=== PATIENT | female | born 1985 | race Caucasian/White ===

== ENCOUNTER 2017-05-07 21:52 | Observation (INO) | payer SELFPAY ==
[~2017-05-07 21:52] MED LIST: IOHEXOL 350 MG/ML 10 ML VIAL (for RAD DIAG) IVCONTRAST ONE; PREN0.01 PO; Z.0.NO CURRENT MEDS
[2017-05-07 21:54] VITALS: BP 132/79; PULSE 93; RESP 16; TEMP 98.1; O2SAT 97
[2017-05-07 22:34] LABS: AUTOMATED NEUTROPHIL # 2.5 TH/MM3 (1.8-7.7); BASOPHIL # 0.1 TH/MM3 (0-0.2); BASOPHIL % 1.2 % (0.0-2.0); EOSINOPHIL # 0.2 TH/MM3 (0-0.4); EOSINOPHIL % 3.7 % (0.0-4.0); HEMATOCRIT 36.6 % (35.0-46.0); LYMPH % 32.6 % (9.0-44.0); LYMPHOCYTE # 1.5 TH/MM3 (1.0-4.8); MEAN CELL VOLUME 96.2 FL (80.0-100.0); MEAN CORPUSCULAR HEMOGLOBIN 32.2 PG (27.0-34.0); MEAN CORPUSCULAR HGB CONC 33.5 % (32.0-36.0); MONO % 8.7 % (0.0-8.0); NEUT % 53.8 % (16.0-70.0); PLATELET COUNT 53 TH/MM3 (150-450); RED CELL DISTRIBUTION WIDTH 16.5 % (11.6-17.2); WHITE BLOOD COUNT 4.6 TH/MM3 (4.0-11.0)
[2017-05-07 22:38] LABS: HEMO FLAGS AUTO DIFF
[2017-05-07] MEDS ORDERED: SODIUM CHLOR 0.9% 1000 ML INJ 1,000 ML IV SCH (22:39)
[2017-05-07] MEDS ORDERED: SODIUM CHLORIDE 0.9% FLUSH 10 ML FLUSH IV FLUSH PRN (22:45)
[2017-05-07 22:51] LABS: APTT (PATIENT) 32.7 SEC (24.3-30.1); INTERNATIONAL NORMALIZED RATIO 1.8 RATIO; PROTHROMBIN TIME - PATIENT 18.7 SEC (9.8-11.6)
--- NOTE | 2017-05-07 22:51 | PD ---
HPI Chief Complaint: Abdominal Pain Time Seen by Provider: 22:29 Travel History International Travel<30 days: No Contact w/Intl Traveler<30days: No Traveled to known affect area: No History of Present Illness HPI Patient is a 32-year-old female presenting to the emergency department for evaluation of right upper quadrant abdominal pain and right mid back pain. Patient states the pain is intermittent and chronic in nature. It has gotten worse over the last 2 days. She reports vomiting yesterday. She denies any fever, chills, chest pain, shortness breath. Patient reports a history of cirrhosis from a blood transfusion when she was a baby. She is positive for hepatitis C. Patient reports alcohol use, she denies any illicit drug use or tobacco use. [facility] Past Medical History Anxiety: Yes Depression: Yes Cirrhosis: Yes Diminished Hearing: No Hepatitis: Yes (C) Musculoskeletal: Yes (C-SPINE PROBLEMS) ?: Not LMP: 5 MONTHS AGO : 2 Social History Alcohol Use: Yes Tobacco Use: No Substance Use: No Allergies-Medications (Allergen,Severity, Reaction): Coded Allergies: No Known Allergies (Verified , 11/09/09) Reported Meds & Prescriptions Reported Meds & Active Scripts Active Review of Systems Except as stated in HPI: all other systems reviewed are Neg General / Constitutional: No: Fever, Chills HENT: No: Headaches Cardiovascular: No: Chest Pain or Discomfort Respiratory: No: Cough Gastrointestinal: Positive: Nausea, Vomiting (yesterday, none today), Abdominal Pain Genitourinary: No: Dysuria Musculoskeletal: No: Myalgias Neurologic: No: Weakness, Dizziness, Syncope Psychiatric: Positive: Substance Abuse Physical Exam Narrative GENERAL: Overweight, well-developed, intoxicated-appearing female. Slightly disheveled. SKIN: Warm and dry. HEAD: Atraumatic. Normocephalic. EYES: Pupils equal and round. Mild scleral icterus. No injection or drainage. ENT: No nasal bleeding or discharge. Mucous membranes pink and moist. NECK: Trachea midline. No JVD. CARDIOVASCULAR: Regular rate and rhythm. RESPIRATORY: No accessory muscle use. Clear to auscultation. Breath sounds equal bilaterally. GASTROINTESTINAL: Abdomen soft, non-tender, nondistended. Hepatic and splenic margins not palpable. Positive bowel sounds, no rebound, no guarding. MUSCULOSKELETAL: Extremities without clubbing, cyanosis, or edema. No obvious deformities. Tender point to palpation in right mid back. No CVAT bilaterally. NEUROLOGICAL: Awake and alert. No obvious cranial nerve deficits. Motor grossly within normal limits. Five out of 5 muscle strength in the arms and legs. Normal speech. PSYCHIATRIC: Appropriate mood and affect; insight and judgment normal. Data Data Last Documented VS Orders Orders Complete Blood Count With Diff (05/07/17 21:59) Comprehensive Metabolic Panel (05/07/17 21:59) Lipase (05/07/17 21:59) Prothrombin Time / Inr (Pt) (05/07/17 21:59) Act Partial Throm Time (Ptt) (05/07/17 21:59) Urinalysis - C+S If Indicated (05/07/17 21:59) Ammonia (05/07/17 21:59) Direct Bilirubin (05/07/17 21:59) Us Abdomen Gallbladder (05/07/17 ) Iv Access Insert/Monitor (05/07/17 22:39) Ecg Monitoring (05/07/17 22:39) Oximetry (05/07/17 22:39) NPO (05/07/17 22:39) Sodium Chlor 0.9% 1000 Ml Inj (Ns 1000 M (05/07/17 22:39) Sodium Chloride 0.9% Flush (Ns Flush) (05/07/17 22:45) Ed Urine Pregnancytest Poc (05/07/17 22:39) Alcohol (Ethanol) (05/07/17 22:39) Lactulose Liq (Lactulose Liq) (05/08/17 00:00) Admit Order (Ed Use Only) (05/07/17 23:50) Labs Laboratory Tests Test 05/07/17 22:02 05/07/17 22:05 05/07/17 23:00 Ammonia 83 MCMOL/L White Blood Count 4.6 TH/MM3 Red Blood Count 3.80 MIL/MM3 Hemoglobin 12.2 GM/DL Hematocrit 36.6 % Mean Corpuscular Volume 96.2 FL Mean Corpuscular Hemoglobin 32.2 PG Mean Corpuscular Hemoglobin Concent 33.5 % Red Cell Distribution Width 16.5 % Platelet Count 53 TH/MM3 Mean Platelet Volume 8.8 FL Neutrophils (%) (Auto) 53.8 % Lymphocytes (%) (Auto) 32.6 % Monocytes (%) (Auto) 8.7 % Eosinophils (%) (Auto) 3.7 % Basophils (%) (Auto) 1.2 % Neutrophils # (Auto) 2.5 TH/MM3 Lymphocytes # (Auto) 1.5 TH/MM3 Monocytes # (Auto) 0.4 TH/MM3 Eosinophils # (Auto) 0.2 TH/MM3 Basophils # (Auto) 0.1 TH/MM3 CBC Comment AUTO DIFF Differential Comment AUTO DIFF CONFIRMED Platelet Estimate LOW Platelet Morphology Comment NORMAL Prothrombin Time 18.7 SEC Prothromb Time International Ratio 1.8 RATIO Activated Partial Thromboplast Time 32.7 SEC Blood Urea Nitrogen 4 MG/DL Creatinine 0.63 MG/DL Random Glucose 98 MG/DL Total Protein 8.8 GM/DL Albumin 2.5 GM/DL Calcium Level 8.3 MG/DL Alkaline Phosphatase 137 U/L Aspartate Amino Transf (AST/SGOT) 214 U/L Alanine Aminotransferase (ALT/SGPT) 76 U/L Total Bilirubin 4.9 MG/DL Direct Bilirubin 3.0 MG/DL Sodium Level 144 MEQ/L Potassium Level 3.4 MEQ/L Chloride Level 109 MEQ/L Carbon Dioxide Level 25.8 MEQ/L Anion Gap 9 MEQ/L Estimat Glomerular Filtration Rate 109 ML/MIN Phosphorus Level 4.5 MG/DL Magnesium Level 1.9 MG/DL Lipase 524 U/L Thyroid Stimulating Hormone 3rd Gen 2.930 uIU/ML Ethyl Alcohol Level 306 MG/DL Urine Color YELLOW Urine Turbidity CLEAR Urine pH 6.0 Urine Specific [place] 1.003 Urine Protein NEG mg/dL Urine Glucose (UA) NEG mg/dL Urine Ketones NEG mg/dL Urine Occult Blood NEG Urine Nitrite NEG Urine Bilirubin NEG Urine Urobilinogen 2.0 MG/DL Urine Leukocyte Esterase NEG Urine RBC LESS THAN 1 /hpf Urine WBC LESS THAN 1 /hpf Urine Squamous Epithelial Cells 1 /hpf Microscopic Urinalysis Comment CULT NOT INDICATED MDM Medical Decision Making Medical Screen Exam Complete: Yes Emergency Medical Condition: Yes Medical Record Reviewed: Yes Interpretation(s) Vital Signs Date Time Temp Pulse Resp B/P (MAP) Pulse Ox O2 Delivery O2 Flow Rate FiO2 05/07/17 21:54 98.1 93 16 132/79 (96 97 Differential Diagnosis Jaundice versus metabolic abnormality versus muscle strain versus liver failure versus other Narrative Course Patient presented for evaluation of right upper quadrant and right mid back pain. Complaint seems chronic in nature however she states it's gotten worse over the last 2 days. Her vital signs are stable, patient appears intoxicated and smells of alcohol. She does admit to drinking wine this evening. Patient' s vital signs are stable, labs were obtained while in triage. Additionally we' ll check an alcohol level an ultrasound of the right upper quadrant is ordered and pending. IV fluids ordered. Care of patient transferred to my attending physician, he will determine patients disposition. Scripts Phytonadione (Vit K1) (Phytonadione) 100 % Liquid 5 MG PO DAILY for Vitamin K deficiency for 2 Days, #10 MG Prov: Zakiya Carvajal 05/12/17 Multivitamin with Folic Acid (Thera Tablet) 400 Mcg Tablet 1 TAB PO DAILY for Nutritional Supplement for 30 Days, #30 TAB Prov: Zakiya Carvajal 05/12/17 Cholecalciferol ([facility] Vitamin D3 Extra Stre) 1,000 Unit Tab 2000 UNITS PO DAILY for Nutritional Supplement for 30 Days, TAB Prov: Zakiya Carvajal 05/12/17 Thiamine HCl ([facility] Vitamin B-1) 100 Mg Tab 100 MG PO DAILY for Nutritional Supplement for 30 Days, #30 TAB Prov: Zakiya Carvajal 05/12/17 Folic Acid (Folic Acid) 1 Mg Tablet 1 MG PO DAILY for Nutritional Supplement for 30 Days, #30 TAB Prov: Zakiya Carvajal 05/12/17 Prednisone (Prednisone) 20 Mg Tab 20 MG PO DAILY for LIVER DISEASE for 10 Days, #10 TAB Take 20mg x 5 days, then take 10mg x 5 days, then discontinue. Prov: Zakiya Carvajal 05/12/17 Pantoprazole (Pantoprazole) 40 Mg Tab 40 MG PO DAILY for GASTRITIS for 30 Days, #30 TAB Prov: Zakiya Carvajal 05/12/17 [Calcium Carbonate Chew] 500 MG CHEW No Conflict Check 500 MG CHEW BID for HYPOCALCEMIA for 10 Days Prov: Zakiya Carvajal 05/12/17 [Lactulose Liq] 30 ML SYRP No Conflict Check 30 ML PO TID for LIVER DISEASE/HYPERAMMONEMIA, #1 BOTTLE Prov: Zakiya Carvajal 05/12/17 Propranolol (Propranolol) 10 Mg Tab 5 MG PO Q12HR for PORTAL HYPERTENSION, #60 TAB Prov: Zakiya Carvajal 05/12/17 Pentoxifylline ER (Pentoxifylline ER) 400 Mg Tab 400 MG PO Q8HR for LIVER DISEASE for 30 Days, TAB Prov: Zakiya Carvajal 05/12/17 Kami Figueroa May 07, 2017 22:51
[2017-05-07 22:56] LABS: ALT (GPT) 76 U/L (10-53); ANION GAP 9 MEQ/L (5-15); AST (GOT) 214 U/L (15-37); BICARBONATE 25.8 MEQ/L (21.0-32.0); BLOOD UREA NITROGEN 4 MG/DL (7-18); CHLORIDE 109 MEQ/L (98-107); GLOMERULAR FILTRATION RATE 109 ML/MIN (>89); POTASSIUM 3.4 MEQ/L (3.5-5.1); SODIUM (NA) 144 MEQ/L (136-145)
[2017-05-07 22:58] LABS: ALKALINE PHOSPHATASE 137 U/L (45-117); TOTAL BILIRUBIN ADULT 4.9 MG/DL (0.2-1.0)
[2017-05-07 23:16] VITALS: BP 109/58; PULSE 85; RESP 17; O2SAT 98
[2017-05-07 23:25] LABS: BLOOD, URINE NEG (NEG); GLUCOSE,URINE NEG (NEG); KETONE, URINE NEG (NEG); NITRITE,URINE NEG (NEG); SQUAMOUS EPITHELIAL CELL URINE 1 /hpf (0-5); URINE COLOR YELLOW (YELLW/STRAW)
[2017-05-07 23:29] LABS: COMMENT (UR) CULT NOT INDICATED; CULTURE IF INDICATED CULT NOT INDICATED
--- NOTE | 2017-05-07 23:36 | RADRPT ---
EXAM DATE/TIME: 05/07/2017 23:10 [place] COMPARISON: No previous studies available for comparison. INDICATIONS : Right upper quadrant pain. MEDICAL HISTORY : Hepatitis C. Cirrhosis. SURGICAL HISTORY : None. ENCOUNTER: Initial ACUITY: 1 day PAIN SCORE: 3/10 LOCATION: Right upper quadrant MEASUREMENTS: LIVER: 18.2 cm length COMMON DUCT: 5 mm RIGHT KIDNEY: 13.7 x 5.2 x 6.5 cm FINDINGS: LIVER: The liver is prominent and diffusely increased in echogenicity with mild heterogeneity. There is no f ocal mass or ductal dilatation. There is no ascites. COMMON DUCT: No intraluminal mass or stone visualized. GALLBLADDER: A single echogenic stone is noted in the gallbladder with posterior shadowing. There is no wall thick ening or pericholecystic fluid. PANCREAS: The visualized portions are within normal limits. RIGHT KIDNEY: No evidence of hydronephrosis, stone, or mass. CONCLUSION: 1. Cholelithiasis with single echogenic gallstone with posterior shadowing. There is no evidence of b iliary obstruction. 2. The liver is enlarged with findings characteristic of hepatic steatosis. Azar Rodriguez MD on May 07, 2017 at 23:32 Board Certified Radiologist. This report was verified electronically.
[2017-05-07 23:42] LABS: PLATELET ESTIMATE SMEAR LOW (NORMAL); PLATELET MORPHOLOGY NORMAL (NORMAL); SCAN/DIFF AUTO DIFF CONFIRMED
--- NOTE | 2017-05-07 23:47 | PD ---
Data Data Last Documented VS Vital Signs Date Time Temp Pulse Resp B/P (MAP) Pulse Ox O2 Delivery O2 Flow Rate FiO2 05/07/17 23:16 85 17 109/58 (75) 98 Room Air 05/07/17 21:54 98.1 Orders Orders Complete Blood Count With Diff (05/07/17 21:59) Comprehensive Metabolic Panel (05/07/17 21:59) Lipase (05/07/17 21:59) Prothrombin Time / Inr (Pt) (05/07/17 21:59) Act Partial Throm Time (Ptt) (05/07/17 21:59) Urinalysis - C+S If Indicated (05/07/17 21:59) Ammonia (05/07/17 21:59) Direct Bilirubin (05/07/17 21:59) Us Abdomen Gallbladder (05/07/17 ) Iv Access Insert/Monitor (05/07/17 22:39) Ecg Monitoring (05/07/17 22:39) Oximetry (05/07/17 22:39) NPO (05/07/17 22:39) Sodium Chlor 0.9% 1000 Ml Inj (Ns 1000 M (05/07/17 22:39) Sodium Chloride 0.9% Flush (Ns Flush) (05/07/17 22:45) Ed Urine Pregnancytest Poc (05/07/17 22:39) Alcohol (Ethanol) (05/07/17 22:39) Labs Laboratory Tests Test 05/07/17 22:02 05/07/17 22:05 05/07/17 23:00 Ammonia 83 MCMOL/L White Blood Count 4.6 TH/MM3 Red Blood Count 3.80 MIL/MM3 Hemoglobin 12.2 GM/DL Hematocrit 36.6 % Mean Corpuscular Volume 96.2 FL Mean Corpuscular Hemoglobin 32.2 PG Mean Corpuscular Hemoglobin Concent 33.5 % Red Cell Distribution Width 16.5 % Platelet Count 53 TH/MM3 Mean Platelet Volume 8.8 FL Neutrophils (%) (Auto) 53.8 % Lymphocytes (%) (Auto) 32.6 % Monocytes (%) (Auto) 8.7 % Eosinophils (%) (Auto) 3.7 % Basophils (%) (Auto) 1.2 % Neutrophils # (Auto) 2.5 TH/MM3 Lymphocytes # (Auto) 1.5 TH/MM3 Monocytes # (Auto) 0.4 TH/MM3 Eosinophils # (Auto) 0.2 TH/MM3 Basophils # (Auto) 0.1 TH/MM3 CBC Comment AUTO DIFF Differential Comment AUTO DIFF CONFIRMED Platelet Estimate LOW Platelet Morphology Comment NORMAL Prothrombin Time 18.7 SEC Prothromb Time International Ratio 1.8 RATIO Activated Partial Thromboplast Time 32.7 SEC Blood Urea Nitrogen 4 MG/DL Creatinine 0.63 MG/DL Random Glucose 98 MG/DL Total Protein 8.8 GM/DL Albumin 2.5 GM/DL Calcium Level 8.3 MG/DL Alkaline Phosphatase 137 U/L Aspartate Amino Transf (AST/SGOT) 214 U/L Alanine Aminotransferase (ALT/SGPT) 76 U/L Total Bilirubin 4.9 MG/DL Direct Bilirubin 3.0 MG/DL Sodium Level 144 MEQ/L Potassium Level 3.4 MEQ/L Chloride Level 109 MEQ/L Carbon Dioxide Level 25.8 MEQ/L Anion Gap 9 MEQ/L Estimat Glomerular Filtration Rate 109 ML/MIN Lipase 524 U/L Ethyl Alcohol Level 306 MG/DL Urine Color YELLOW Urine Turbidity CLEAR Urine pH 6.0 Urine Specific [place] 1.003 Urine Protein NEG mg/dL Urine Glucose (UA) NEG mg/dL Urine Ketones NEG mg/dL Urine Occult Blood NEG Urine Nitrite NEG Urine Bilirubin NEG Urine Urobilinogen 2.0 MG/DL Urine Leukocyte Esterase NEG Urine RBC LESS THAN 1 /hpf Urine WBC LESS THAN 1 /hpf Urine Squamous Epithelial Cells 1 /hpf Microscopic Urinalysis Comment CULT NOT INDICATED MDM Supervised Visit with MERVIN: Yes Narrative Course I, Dr. Diana, have reviewed the advance practice practitioner's documentation and am in agreement, met with the patient face to face, made the diagnosis, and the medical decision making was done by me. See her note for further details. Briefly this a 32-year-old female who is here for evaluation of right upper quadrant abdominal pain. Patient drinks a moderate amount of alcohol daily. She just moved here from [place] 2 days ago with her significant other. Vital signs are within normal limits. CBC is remarkable for platelets 53. CMP is remarkable for TB bili 4.9, AST 214, ALT 76, alkaline phosphatase 137 Ammonia level is 83. Alcohol level is 306. Right upper quadrant ultrasound: Cholelithiasis with single echogenic gallstone with posterior shadowing. There is no evidence of biliary obstruction. The liver is enlarged with findings characteristic of hepatic steatosis. Patient reports history of hepatitis C. She seems somewhat confused, likely secondary to hepatic encephalopathy given her ammonia level of 83. She will be given lactulose and will be admitted for overnight observation. Case discussed with hospitalist Dr. Hoffman who will admit the patient to her service. Diagnosis Primary Impression: Hepatic encephalopathy Additional Impressions: Transaminitis Hyperbilirubinemia Alcohol intoxication Qualified Codes: F10.921 - Alcohol use, unspecified with intoxication delirium Admitting Information Admitting Physician Requests: Observation Yo Diana MD May 07, 2017 23:47
[2017-05-08] VITALS (7 sets, daily range): BP systolic 109–123; BP diastolic 55–80; PULSE 89–99; RESP 16–20; TEMP 97.9–99; O2SAT 93–98
[2017-05-08] MEDS ORDERED: LACTULOSE SYRUP 20 GM/30 ML CUP PO ONE
[2017-05-08] MEDS ORDERED: NALOXONE HCL 0.4 MG/ML AMP IV PUSH PRN (00:15)
[2017-05-08] MEDS ORDERED: LORazepam 2 MG TAB PO PRN (00:15)
[2017-05-08] MEDS ORDERED: LORazepam 1 MG TAB PO PRN (00:15)
[2017-05-08] MEDS ORDERED: LORazepam 2 MG/ML VIAL IV PUSH PRN ×4 (00:15)
[2017-05-08] MEDS ORDERED: THIAMINE HCL 100 MG TAB PO ONE (00:15)
[2017-05-08] MEDS ORDERED: SODIUM CHLORIDE 0.9% FLUSH 10 ML FLUSH IV FLUSH PRN ×2 (00:15)
[2017-05-08] MEDS ORDERED: FLUMAZENIL 0.5 MG/5 ML VIAL IV PUSH PRN (00:15)
[2017-05-08] MEDS ORDERED: POTASSIUM CHLORIDE 25 MEQ EFFERVESCENT TAB PO ONE (03:30)
--- NOTE | 2017-05-08 06:44 | HHI.HP ---
[facility] No Primary Care Physician Admission Diagnosis hepatic encephalopathy, transaminitis, hyperbilirubinemia, alcohol ABUSE Diagnoses: Chief Complaint: Liver issues Travel History International Travel<30 Days: No Contact w/Intl Traveler <30 Da: No Traveled to Known Affected Are: No History of Present Illness hx from patient, ER communication and review of med records no fever no [place] no vomtiing was told liver flare up about 1 week ago has been drowsy has hepatitis c wont wake up for my interview - but mostly sleepy has not made bowel movement is confused on my arrival, took long time to wake up and was not answering questions Wide awake for my interview answered all questions appropriately has not taken lactulose yet Review of Systems Constitutional: DENIES: Diaphoretic episodes, Fatigue, Fever, Weight gain, Weight loss, Chills, Dizziness, Change in appetite, Night Sweats Endocrine: DENIES: Abnorml menstrual pattern, Heat/cold intolerance Eyes: DENIES: Blurred vision, Diplopia, Eye inflammation, Eye pain, Vision loss Ears, nose, mouth, throat: DENIES: Tinnitus, Hearing loss, Vertigo, Nasal discharge, Running Nose, Epistaxis Respiratory: COMPLAINS OF: Cough, DENIES: Apneas, Snoring, Wheezing, Hemoptysis Cardiovascular: DENIES: Chest pain, Palpitations, Syncope, Dyspnea on Exertion Gastrointestinal: DENIES: Abdominal pain, Black stools, Bloody stools, Constipation Genitourinary: DENIES: Abnormal vaginal bleeding, Dysmenorrhea Musculoskeletal: DENIES: Joint pain, Muscle aches, Stiffness Integumentary: DENIES: Abnormal pigmentation, Pruritus Hematologic/lymphatic: DENIES: Bruising, Lymphadenopathy Immunologic/allergic: DENIES: Eczema, Urticaria Neurologic: DENIES: Abnormal gait, Headache, Localized weakness Psychiatric: DENIES: Anxiety, Confusion, Mood changes, Delusions Except as stated in HPI: all other systems reviewed are Neg Past Family Social History Past Medical History hepatitis c Past Surgical History none Reported Medications Reported Meds & Active Scripts Active Allergies: Coded Allergies: No Known Allergies (Verified , 11/09/09) Active Ordered Medications Current Medications Sodium Chloride 1,000 ml @ 1,000 mls/hr Q1H IV Last administered on 05/07/17 23:22; Start 05/07/17 at 22:39; Stop 05/07/17 at 23:38; Status DC Sodium Chloride (NS Flush) 2 ml UNSCH PRN IV FLUSH FLUSH AFTER USING IV ACCESS ; Start 05/07/17 at 22:45; Stop 05/08/17 at 00:08; Status DC Lactulose (Lactulose Liq) 30 ml ONCE ONCE PO Last administered on 05/08/17 00 :08; Start 05/08/17 at 00:00; Stop 05/08/17 at 00:01; Status DC Sodium Chloride (NS Flush) 2 ml UNSCH PRN IV FLUSH FLUSH AFTER USING IV ACCESS ; Start 05/08/17 at 00:15; Stop 05/08/17 at 00:15; Status DC Sodium Chloride (NS Flush) 2 ml BID IV FLUSH ; Start 05/08/17 at 09:00; Stop at 09:00; Status DC Naloxone HCl (Narcan Inj) 0.4 mg UNSCH PRN IV PUSH SEE LABEL COMMENTS; Start 05/08/17 at 00:15 Lactulose (Lactulose Liq) 30 ml QID PO Last administered on 05/08/17 12:13; Start 05/08/17 at 09:00 Thiamine HCl (Vitamin B1) 100 mg DAILY PO Last administered on 05/08/17 09:03 ; Start 05/08/17 at 09:00 Thiamine HCl (Vitamin B1) 100 mg ONCE ONCE PO Last administered on 05/08/17 00:53; Start 05/08/17 at 00:15; Stop 05/08/17 at 00:16; Status DC Sodium Chloride (NS Flush) 2 ml UNSCH PRN IV FLUSH FLUSH AFTER USING IV ACCESS ; Start 05/08/17 at 00:15 Sodium Chloride (NS Flush) 2 ml BID IV FLUSH Last administered on 05/08/17 09: 03; Start 05/08/17 at 09:00 Folic Acid (Folate) 1 mg DAILY PO Last administered on 05/08/17 09:03; Start 05/08/17 at 09:00; Stop 05/13/17 at 08:59 Flumazenil (Romazicon Inj) 0.2 mg Q1M PRN IV PUSH SEE LABEL COMMENTS; Start at 00:15 Lorazepam (Ativan) 1 mg Q4H PRN PO CIWA 8 - 10 Last administered on 05/08/17 04:02; Start 05/08/17 at 00:15 Lorazepam (Ativan Inj) 1 mg Q4H PRN IV PUSH CIWA 8 - 10; Start 05/08/17 at 00: 15 Lorazepam (Ativan) 2 mg Q2H PRN PO CIWA 11-14; Start 05/08/17 at 00:15 Lorazepam (Ativan Inj) 2 mg Q2H PRN IV PUSH CIWA 11-14; Start 05/08/17 at 00:15 Lorazepam (Ativan Inj) 2 mg Q1H PRN IV PUSH CIWA 15-20; Start 05/08/17 at 00:15 Lorazepam (Ativan Inj) 2 mg Q15M PRN IV PUSH CIWA > 20; Start 05/08/17 at 00:15 Potassium Bicarb/ Potassium Chloride (K-Lyte Cl Eff) 50 meq ONCE ONCE PO Last administered on 05/08/17 04:00; Start 05/08/17 at 03:30; Stop 05/08/17 at 03:31; Status DC Family History Denies Social History no smoking drinks 2 beers a day or so no drugs Physical Exam Vital Signs Vital Signs Date Time Temp Pulse Resp B/P (MAP) Pulse Ox O2 Delivery O2 Flow Rate FiO2 05/08/17 02:29 97.9 89 17 109/65 (80) 93 05/07/17 23:16 85 17 109/58 (75) 98 Room Air 05/07/17 21:54 98.1 93 16 132/79 (96) 97 Physical Exam GENERAL: This is a well-nourished, well-developed patient, in no apparent distress. SKIN: No rashes, ecchymoses or lesions. Cool and dry. HEAD: Atraumatic. Normocephalic. No temporal or scalp tenderness. EYES: Pupils equal round and reactive. Extraocular motions intact. No scleral icterus. No injection or drainage. ENT: Nose without bleeding, purulent drainage or septal hematoma. Throat without erythema, tonsillar hypertrophy or exudate. Uvula midline. Airway patent. NECK: Trachea midline. No JVD or lymphadenopathy. Supple, nontender, no meningeal signs. CARDIOVASCULAR: Regular rate and rhythm without murmurs, gallops, or rubs. RESPIRATORY: Clear to auscultation. Breath sounds equal bilaterally. No wheezes , rales, or rhonchi. GASTROINTESTINAL: Abdomen soft, non-tender, nondistended. No hepato-splenomegaly , or palpable masses. No guarding. Obese MUSCULOSKELETAL: Extremities without clubbing, cyanosis, or edema. No joint tenderness, effusion, or edema noted. No calf tenderness. Negative Homans sign bilaterally. NEUROLOGICAL: Awake and alert. Cranial nerves II through XII intact. Motor and sensory grossly within normal limits. Five out of 5 muscle strength in all muscle groups. Normal speech. Insight and judgment appears good Mood and behavior is appropriate Laboratory Laboratory Tests Test 05/07/17 22:02 05/07/17 22:05 05/07/17 23:00 Ammonia 83 White Blood Count 4.6 Red Blood Count 3.80 Hemoglobin 12.2 Hematocrit 36.6 Mean Corpuscular Volume 96.2 Mean Corpuscular Hemoglobin 32.2 Mean Corpuscular Hemoglobin Concent 33.5 Red Cell Distribution Width 16.5 Platelet Count 53 Mean Platelet Volume 8.8 Neutrophils (%) (Auto) 53.8 Lymphocytes (%) (Auto) 32.6 Monocytes (%) (Auto) 8.7 Eosinophils (%) (Auto) 3.7 Basophils (%) (Auto) 1.2 Neutrophils # (Auto) 2.5 Lymphocytes # (Auto) 1.5 Monocytes # (Auto) 0.4 Eosinophils # (Auto) 0.2 Basophils # (Auto) 0.1 CBC Comment AUTO DIFF Differential Comment AUTO DIFF CONFIRMED Platelet Estimate LOW Platelet Morphology Comment NORMAL Prothrombin Time 18.7 Prothromb Time International Ratio 1.8 Activated Partial Thromboplast Time 32.7 Blood Urea Nitrogen 4 Creatinine 0.63 Random Glucose 98 Total Protein 8.8 Albumin 2.5 Calcium Level 8.3 Alkaline Phosphatase 137 Aspartate Amino Transf (AST/SGOT) 214 Alanine Aminotransferase (ALT/SGPT) 76 Total Bilirubin 4.9 Direct Bilirubin 3.0 Sodium Level 144 Potassium Level 3.4 Chloride Level 109 Carbon Dioxide Level 25.8 Anion Gap 9 Estimat Glomerular Filtration Rate 109 Lipase 524 Ethyl Alcohol Level 306 Urine Color YELLOW Urine Turbidity CLEAR Urine pH 6.0 Urine Specific [place] 1.003 Urine Protein NEG Urine Glucose (UA) NEG Urine Ketones NEG Urine Occult Blood NEG Urine Nitrite NEG Urine Bilirubin NEG Urine Urobilinogen 2.0 Urine Leukocyte Esterase NEG Urine RBC LESS THAN 1 Urine WBC LESS THAN 1 Urine Squamous Epithelial Cells 1 Microscopic Urinalysis Comment CULT NOT INDICATED Result Diagram: 05/07/17220405/07/172204 Imaging Last Impressions Gall Bladder Ultrasound 05/07/17 0000 Signed Impressions: Service Date/Time: Sunday, May 07, 2017 23:10 - CONCLUSION: 1. Cholelithiasis with single echogenic gallstone with posterior shadowing. There is no evidence of biliary obstruction. 2. The liver is enlarged with findings characteristic of hepatic steatosis. MD Jena Ibarra VTE Risk Assessment [place] VTE Risk Assessment: No/Low Risk (score <= 1) Caprini Risk Assessment Model Point Value = 1 Point Value = 2 Point Value = 3 Point Value = 5 Age 41-60 Minor surgery BMI > 25 kg/m2 Swollen legs Varicose veins or History of unexplained or recurrent spontaneous Oral contraceptives or hormone replacement Sepsis (< 1 month) Serious lung disease, including pneumonia (< 1 month) Abnormal pulmonary function Acute myocardial infarction Congestive heart failure (< 1 month) History of inflammatory bowel disease Medical patient at bed rest Age 61-74 Arthroscopic surgery Major open surgery (> 45 min) Laparoscopic surgery (> 45 min) Malignancy Confined to bed (> 72 hours) Immobilizing plaster cast Central venous access Age >= 75 History of VTE Family history of VTE Factor V Leiden Prothrombin [id number] Lupus anticoagulant Anticardiolipin antibodies Elevated serum homocysteine Heparin-induced thrombocytopenia Other congenital or acquired thrombophilia Stroke (< 1 month) Elective arthroplasty Hip, pelvis, or leg fracture Acute spinal cord injury (< 1 month) Prophylaxis Regimen Total Risk Factor Score Risk Level Prophylaxis Regimen 0-1 Low Early ambulation 2 Moderate Order ONE of the following: *Sequential Compression Device (SCD) *Heparin 5000 units SQ BID 3-4 Higher Order ONE of the following medications: *Heparin 5000 units SQ TID *Enoxaparin/Lovenox 40 mg SQ daily (WT < 150 kg, CrCl > 30 mL/min) *Enoxaparin/Lovenox 30 mg SQ daily (WT < 150 kg, CrCl > 10-29 mL/min) *Enoxaparin/Lovenox 30 mg SQ BID (WT < 150 kg, CrCl > 30 mL/min) AND/OR *Sequential Compression Device (SCD) 5 or more Highest Order ONE of the following medications: *Heparin 5000 units SQ TID (Preferred with Epidurals) *Enoxaparin/Lovenox 40 mg SQ daily (WT < 150 kg, CrCl > 30 mL/min) *Enoxaparin/Lovenox 30 mg SQ daily (WT < 150 kg, CrCl > 10-29 mL/min) *Enoxaparin/Lovenox 30 mg SQ BID (WT < 150 kg, CrCl > 30 mL/min) AND *Sequential Compression Device (SCD) Assessment and Plan Assessment and Plan hepatic encephalopathy hepatitis C symptomatic cholelithiasis Alcohol abuse Possible homeless Elevated INR/coagulopathy lactulose 30ml qid vitamin k outpatient GI follow up would need to wake up more and see response to lactulose. If more awake and alert, can consider outpatient GI workup Code Status FULL Code Discussed Condition With RN and patient and family and Shaq Sanchez MD May 08, 2017 06:44 Agustin Dunham DO May 08, 2017 12:31
[2017-05-08 08:58] LABS: MAGNESIUM 1.9 MG/DL (1.5-2.5)
[2017-05-08] MEDS ORDERED: SODIUM CHLORIDE 0.9% FLUSH 10 ML FLUSH IV FLUSH SCH (09:00)
[2017-05-08] MEDS: FOLIC ACID 1 MG TAB PO SCH (09:03)
[2017-05-08] MEDS: LACTULOSE SYRUP 20 GM/30 ML CUP PO SCH ×4 (09:03→20:53)
[2017-05-08] MEDS: SODIUM CHLORIDE 0.9% FLUSH 10 ML FLUSH IV FLUSH SCH ×2 (09:03→20:48)
[2017-05-08] MEDS: THIAMINE HCL 100 MG TAB PO SCH (09:03)
[2017-05-08] MEDS ORDERED: PHYTONADIONE 5 MG TAB PO SCH (13:00)
[2017-05-08] MEDS ORDERED: MULTIVITAMIN TAB PO ONE (13:00)
[2017-05-08] MEDS ORDERED: PANTOPRAZOLE SOD 40 MG DELAYED RELEASE TAB PO ONE (13:00)
[2017-05-08] MEDS: PHYTONADIONE 5 MG/SWFI 5 ML ORAL SYR PO SCH (15:00)
[2017-05-08] MEDS: IBUPROFEN 400 MG TAB PO PRN (20:48)
[2017-05-09] VITALS (12 sets, daily range): BP systolic 107–146; BP diastolic 56–80; PULSE 67–108; RESP 16–18; TEMP 98.2–99; O2SAT 95–97
[2017-05-09 05:22] LABS: AUTOMATED NEUTROPHIL # 1.2 TH/MM3 (1.8-7.7); BASOPHIL % 0.5 % (0.0-2.0); EOSINOPHIL # 0.1 TH/MM3 (0-0.4); EOSINOPHIL % 4.1 % (0.0-4.0); HEMATOCRIT 34.2 % (35.0-46.0); LYMPH % 34.2 % (9.0-44.0); LYMPHOCYTE # 0.8 TH/MM3 (1.0-4.8); MEAN CELL VOLUME 98.1 FL (80.0-100.0); MEAN CORPUSCULAR HEMOGLOBIN 32.8 PG (27.0-34.0); MEAN CORPUSCULAR HGB CONC 33.4 % (32.0-36.0); MONO % 11.6 % (0.0-8.0); NEUT % 49.6 % (16.0-70.0); PLATELET COUNT 38 TH/MM3 (150-450); RED BLOOD COUNT 3.49 MIL/MM3 (4.00-5.30); RED CELL DISTRIBUTION WIDTH 16.1 % (11.6-17.2); WHITE BLOOD COUNT 2.5 TH/MM3 (4.0-11.0)
[2017-05-09 05:32] LABS: HEMO FLAGS AUTO DIFF
[2017-05-09 05:40] LABS: INTERNATIONAL NORMALIZED RATIO 1.9 RATIO; PROTHROMBIN TIME - PATIENT 19.7 SEC (9.8-11.6)
[2017-05-09 05:47] LABS: BICARBONATE 25.9 MEQ/L (21.0-32.0); MAGNESIUM 1.6 MG/DL (1.5-2.5); POTASSIUM 3.6 MEQ/L (3.5-5.1); TOTAL BILIRUBIN ADULT 4.9 MG/DL (0.2-1.0)
[2017-05-09 07:01] LABS: PLATELET ESTIMATE SMEAR LOW (NORMAL); PLATELET MORPHOLOGY NORMAL (NORMAL); SCAN/DIFF AUTO DIFF CONFIRMED
[2017-05-09] MEDS: PETROLEUM/SHARK LIVER OIL/PHENYLEPHRINE 60 GM TUBE RECTAL PRN (08:25)
[2017-05-09] MEDS: PANTOPRAZOLE SOD 40 MG DELAYED RELEASE TAB PO SCH (08:25)
[2017-05-09] MEDS: LACTULOSE SYRUP 20 GM/30 ML CUP PO SCH ×3 (08:25→18:45)
[2017-05-09] MEDS: THIAMINE HCL 100 MG TAB PO SCH (08:26)
[2017-05-09] MEDS: MULTIVITAMIN TAB PO SCH (08:26)
[2017-05-09] MEDS: FOLIC ACID 1 MG TAB PO SCH (08:26)
[2017-05-09] MEDS: CALCIUM CARBONATE 500 MG CHEWABLE TAB CHEW SCH ×2 (08:26→21:55)
[2017-05-09] MEDS: PHYTONADIONE 5 MG/SWFI 5 ML ORAL SYR PO SCH (08:27)
[2017-05-09] MEDS: SODIUM CHLORIDE 0.9% FLUSH 10 ML FLUSH IV FLUSH SCH ×2 (08:27→21:59)
--- NOTE | 2017-05-09 10:45 | HHI.PR ---
Subjective Remarks Follow up on patient with hepatic encephalopathy. Patient seen and examined. Patient states she still is not thinking clearly. She reports creepy crawly sensation over her legs and arms intermittently with associated fever and chills. She denies any auditory or visual hallucinations. She reports some nausea but no vomiting. She denies any abdominal pain. She reports diarrhea on lactulose. She denies any urinary difficulties. She states she's had hepatitis C following a blood transfusion when she was a baby. She drinks 3 glasses of wine a night 3 nights of the week. She denies any illicit drug use. She denies any hematuria, hematochezia or melena. Objective Vitals Vital Signs Date Time Temp Pulse Resp B/P (MAP) Pulse Ox O2 Delivery O2 Flow Rate FiO2 05/09/17 07:37 98.4 82 18 122/62 (82) 96 05/09/17 07:01 77 05/09/17 04:06 98.2 86 17 120/67 (84) 97 05/09/17 03:42 84 05/09/17 00:15 98.8 92 16 107/56 (73) 96 05/09/17 00:11 89 05/08/17 21:50 21 05/08/17 20:25 96 05/08/17 20:00 99.0 98 16 119/80 (93) 98 05/08/17 16:01 98.9 99 20 123/76 (92) 95 05/08/17 11:36 98.4 91 19 109/55 (73) 93 I/O 05/08/17 05/08/17 05/08/17 05/09/17 05/09/17 05/09/17 07:00 15:00 23:00 07:00 15:00 23:00 Intake Total 1230 ml Balance 1230 ml Intake Oral 230 ml IV Total 1000 ml # Voids 3 Result Diagram: 05/09/17 0508 05/09/17 0508 Imaging Last Impressions Gall Bladder Ultrasound 05/07/17 0000 Signed Impressions: Service Date/Time: Sunday, May 07, 2017 23:10 - CONCLUSION: 1. Cholelithiasis with single echogenic gallstone with posterior shadowing. There is no evidence of biliary obstruction. 2. The liver is enlarged with findings characteristic of hepatic steatosis. Azar Rodriguez MD Objective Remarks GENERAL: This is a well-nourished, well-developed patient, in no apparent distress. Awake and alert. Oriented. Sitting up in hospital bed. SKIN: Cool and dry. Diffuse scattered hyperpigmented papular rash on BLEs, ? Petechial rash HEAD: Atraumatic. Normocephalic. EYES: Pupils equal round and reactive. Extraocular motions intact. No scleral icterus. No injection or drainage. ENT: Nose without bleeding or purulent drainage. Throat without erythema, tonsillar hypertrophy, exudate or petechiae. Uvula midline. Airway patent. Dry mucosal membranes. NECK: Trachea midline. CARDIOVASCULAR: Tachycardic without murmurs, gallops, or rubs. RESPIRATORY: Clear to auscultation. Breath sounds equal bilaterally. No wheezes , rales, or rhonchi. GASTROINTESTINAL: Abdomen soft, nondistended. (+)tenderness to palpation over RUQ. MUSCULOSKELETAL: Extremities without clubbing, cyanosis, or edema. No joint tenderness, effusion, or edema noted. No calf tenderness. Slightly tremulous. NEUROLOGICAL: Awake and alert. Able to move all extremities spontaneously. No focal neurologic findings appreciated. Normal speech. Medications and IVs Current Medications Medications (Trade) Dose Ordered Sig/Silvio Route Start Time Stop Time Status Last Admin (Narcan Inj) 0.4 mg UNSCH PRN IV PUSH 05/08/17 00:15 (Lactulose Liq) 30 ml QID PO 05/08/17 09:00 05/09/17 08:25 (Vitamin B1) 100 mg DAILY PO 05/08/17 09:00 05/09/17 08:26 (NS Flush) 2 ml UNSCH PRN IV FLUSH 05/08/17 00:15 (NS Flush) 2 ml BID IV FLUSH 05/08/17 09:00 05/08/17 20:48 (Folate) 1 mg DAILY PO 05/08/17 09:00 05/13/17 08:59 05/09/17 08:26 (Romazicon Inj) 0.2 mg Q1M PRN IV PUSH 05/08/17 00:15 (Ativan) 1 mg Q4H PRN PO 05/08/17 00:15 05/08/17 04:02 (Ativan Inj) 1 mg Q4H PRN IV PUSH 05/08/17 00:15 (Ativan) 2 mg Q2H PRN PO 05/08/17 00:15 (Ativan Inj) 2 mg Q2H PRN IV PUSH 05/08/17 00:15 (Ativan Inj) 2 mg Q1H PRN IV PUSH 05/08/17 00:15 (Ativan Inj) 2 mg Q15M PRN IV PUSH 05/08/17 00:15 (Theragran) 1 tab DAILY PO 05/09/17 09:00 05/09/17 08:26 (Protonix) 40 mg DAILY PO 05/09/17 09:00 05/09/17 08:25 (Motrin) 400 mg Q8H PRN PO 05/08/17 13:00 05/08/17 20:48 (Mephyton Liq) 5 mg DAILY PO 05/08/17 14:30 05/09/17 08:27 (Preparation H Oint) 1 applic Q6H PRN RECTAL 05/08/17 18:15 05/09/17 08:25 (Tums Chew) 500 mg Q12HR CHEW 05/09/17 09:00 05/09/17 08:26 A/P Assessment and Plan 32-year-old female with past medical history significant for hepatitis C and ongoing alcohol use, suspected abuse admitted with altered mental status. Hepatic encephalopathy - improved - ammonia level trending down on Lactulose. She reports diarrhea. Will decrease frequency of dose. Repeat ammonia level in am. - Discussed with patient importance of complete alcohol cessation - may benefit from addition of Rifaximin. Will defer to GI. Hepatitis C, treatment hermelindo Coagulopathy Pancytopenia Hx of alcohol use/suspected abuse - Ethyl alcohol level 306 at presentation - Gallbladder US showing cholelithiasis with single echogenic gallstone with posterior shadowing. There is no evidence of biliary obstruction and liver is enlarged with findings characteristic of hepatic steatosis. - Suspect liver cirrhosis - On Vitamin K po, INR trending up. Continue to monitor. Repeat labs in am. - Consult GI, appreciated assistance Transaminitis - Suspect multifactorial in patient with history of hepatitis C and alcohol use - LFTs trending down - continue to monitor. Repeat labs in am. Alcohol use/suspected abuse - [facility] protocol - continue on Thiamine/Folic acid/MVI daily - discussed importance of complete alcohol cessation - continue to monitor for s/sxs of withdrawal Hypocalcemia - po Tums - repeat calcium level in am - check Vitamin D level Homeless - case management consult DVT prophylaxis - Chemoprophylaxis contraindicated - patient is ambulatory Discussed with patient, nursing staff and Dr. Arellano Discharge Planning Pending clinical course Zakiya Carvajal May 09, 2017 10:45
--- NOTE | 2017-05-09 11:12 | PD.CONS ---
HPI History of Present Illness This is a 32 year old female with hx hep c who presented with "liver pain" in RUQ. The pain has been intermittent and worsening in the last 4-6 months. She has also noticed edema lower legs, abd swelling. Has not noticed any jaundice. Has hep C, has not had treatment for that. Drinks ETOH 2-3 glasses wine not every day. OF note ETOH 306 on admission. No n/v, loose stool, black tarry stool, blood in stool. Never had EGD or colonoscopy. (Gely Marsh) PFSH Past Medical History hepatitis c Past Surgical History none (Gely Marsh) Coded Allergies: No Known Allergies (Verified , 11/09/09) Family History Denies Social History no smoking drinks 2-3 glasses red wine several times per week no drugs (Gely Marsh) Review of Systems Constitutional: COMPLAINS OF: Fever Eyes: DENIES: Blurred vision Ears, nose, mouth, throat: DENIES: Hearing loss Respiratory: DENIES: Hemoptysis Cardiovascular: DENIES: Chest pain Gastrointestinal: COMPLAINS OF: Abdominal pain, DENIES: Black stools, Bloody stools, Constipation, Diarrhea, Nausea, Vomiting, Hematemesis Genitourinary: DENIES: Hematuria Musculoskeletal: DENIES: Joint Swelling Integumentary: DENIES: Abnormal pigmentation Hematologic/lymphatic: COMPLAINS OF: Bruising Neurologic: DENIES: Abnormal gait Psychiatric: DENIES: Confusion (Gely Marsh) GI Exam Vitals I&O Vital Signs Date Time Temp Pulse Resp B/P (MAP) Pulse Ox O2 Delivery O2 Flow Rate FiO2 05/09/17 07:37 98.4 82 18 122/62 (82) 96 05/09/17 07:01 77 05/09/17 04:06 98.2 86 17 120/67 (84) 97 05/09/17 03:42 84 05/09/17 00:15 98.8 92 16 107/56 (73) 96 05/09/17 00:11 89 05/08/17 21:50 21 05/08/17 20:25 96 05/08/17 20:00 99.0 98 16 119/80 (93) 98 05/08/17 16:01 98.9 99 20 123/76 (92) 95 05/08/17 11:36 98.4 91 19 109/55 (73) 93 I/O 05/08/17 05/08/17 05/08/17 05/09/17 05/09/17 05/09/17 07:00 15:00 23:00 07:00 15:00 23:00 Intake Total 1230 ml Balance 1230 ml Intake Oral 230 ml IV Total 1000 ml # Voids 3 Imaging Last Impressions Gall Bladder Ultrasound 05/07/17 0000 Signed Impressions: Service Date/Time: Sunday, May 07, 2017 23:10 - CONCLUSION: 1. Cholelithiasis with single echogenic gallstone with posterior shadowing. There is no evidence of biliary obstruction. 2. The liver is enlarged with findings characteristic of hepatic steatosis. Azar Rodriguez MD Laboratory Test 05/08/17 20:00 05/09/17 05:08 Urine Opiates Screen NEG Urine Barbiturates Screen NEG Urine Amphetamines Screen NEG Urine Benzodiazepines Screen NEG Urine Cocaine Screen NEG Urine Cannabinoids Screen NEG White Blood Count 2.5 TH/MM3 Red Blood Count 3.49 MIL/MM3 Hemoglobin 11.4 GM/DL Hematocrit 34.2 % Mean Corpuscular Volume 98.1 FL Mean Corpuscular Hemoglobin 32.8 PG Mean Corpuscular Hemoglobin Concent 33.4 % Red Cell Distribution Width 16.1 % Platelet Count 38 TH/MM3 Mean Platelet Volume 8.7 FL Neutrophils (%) (Auto) 49.6 % Lymphocytes (%) (Auto) 34.2 % Monocytes (%) (Auto) 11.6 % Eosinophils (%) (Auto) 4.1 % Basophils (%) (Auto) 0.5 % Neutrophils # (Auto) 1.2 TH/MM3 Lymphocytes # (Auto) 0.8 TH/MM3 Monocytes # (Auto) 0.3 TH/MM3 Eosinophils # (Auto) 0.1 TH/MM3 Basophils # (Auto) 0.0 TH/MM3 CBC Comment AUTO DIFF Differential Comment AUTO DIFF CONFIRMED Platelet Estimate LOW Platelet Morphology Comment NORMAL Prothrombin Time 19.7 SEC Prothromb Time International Ratio 1.9 RATIO Blood Urea Nitrogen 3 MG/DL Creatinine 0.51 MG/DL Random Glucose 81 MG/DL Total Protein 7.9 GM/DL Albumin 2.1 GM/DL Calcium Level 7.3 MG/DL Phosphorus Level 3.0 MG/DL Magnesium Level 1.6 MG/DL Alkaline Phosphatase 107 U/L Aspartate Amino Transf (AST/SGOT) 192 U/L Alanine Aminotransferase (ALT/SGPT) 68 U/L Total Bilirubin 4.9 MG/DL Sodium Level 139 MEQ/L Potassium Level 3.6 MEQ/L Chloride Level 106 MEQ/L Carbon Dioxide Level 25.9 MEQ/L Anion Gap 7 MEQ/L Estimat Glomerular Filtration Rate 139 ML/MIN Protein Corrected Calcium 7.0 MG/DL Ammonia 57 MCMOL/L Amylase Level 46 U/L Lipase 288 U/L Physical Examination HEENT: PERRL; normocephalic; atraumatic; mild icterus CHEST: Chest is clear to auscultation and percussion. CARDIAC: Regular rate and rhythm with no murmur gallop or rubs. ABDOMEN: Soft, distended, RUQ TTP; no hepatosplenomegaly; bowel sounds are present in all four quadrants. EXTREMITIES: No clubbing, cyanosis, mild BLE edema SKIN: spider angiomas; mild jaundice [employer]ATOR: No focal deficits; alert and oriented times three. (Gely Marsh) Assessment and Plan Plan ASSESSMENT - RUQ pain, elevated LFTs, abd distention - hepatitis, ?cirrhosis etiology unclear. US liver shows cholelithiasis no obstruction, fatty liver could be hep c or etoh. has hx life long hep c tx naive, consistent use ETOH and denies heavy drinking, ETOH 306 on admission. will get liver w/u to r/o other cause - elevated NH - 83 on admission, started on lactulose, A&O currently PLAN - CT abd - IV solumedrol 40mg q12h - pentoxifylline 400mg TID - monitor labs - continue lactulose - hcv genotype & quant - liver w/u - low sodium diet - complete ETOH cessation - further recs to follow THis pt seen by myself and Dr Yoon and this note is written on his behalf (Gely Marsh) Physician Comments Seen and examined with MUKESH, states has had Hep c since infancy. Not been treated. Herrera ordered for liver disease. Discussed with pt. and family. (Roshan Yoon MD) Gely Marsh May 09, 2017 11:12 Roshan Yoon MD May 09, 2017 16:50
[2017-05-09] MEDS ORDERED: DIATRIZOATE MEGLUM/DIATRIZOATE SOD 9 ML CUP PO ONE (12:15)
[2017-05-09 14:17] LABS: BETA HCG QUANT LESS THAN 1 MIU/ML (0-5)
[2017-05-09] MEDS: methylPREDNISolone SOD SUCC 40 MG/1 ML VIAL IV PUSH SCH (14:54)
[2017-05-09] MEDS: PENTOXIFYLLINE 400 MG CONTROLLED RELEASE TAB PO SCH ×2 (14:54→21:56)
[2017-05-09] MEDS ORDERED: CALCIUM GLUCONATE INJ 1 GM in SODIUM CHLORIDE 0.9% INJ 100 ML IV ONE (18:00)
[2017-05-09] MEDS: IBUPROFEN 400 MG TAB PO PRN (21:59)
--- NOTE | 2017-05-09 23:13 | RADRPT ---
EXAM DATE/TIME: 05/09/2017 19:42 [place] COMPARISON: No previous studies available for comparison. INDICATIONS : Right upper quadrant pain . IV CONTRAST: 81 cc Omnipaque 350 (iohexol) IV ORAL CONTRAST: Prescribed oral contrast ingested. RADIATION DOSE: 15.57 CTDIvol (mGy) MEDICAL HISTORY : Hepatitis C. Cirrhosis. SURGICAL HISTORY : None. ENCOUNTER: Initial ACUITY: 1 day PAIN SCALE: 4/10 LOCATION: Right upper quadrant TECHNIQUE: Volumetric scanning of the abdomen and pelvis was performed. Using automated exposure control and ad justment of the mA and/or kV according to patient size, radiation dose was kept as low as reasonably achievable to obtain optimal diagnostic quality images. DICOM format image data is available electro nically for review and comparison. FINDINGS: The spleen is markedly enlarged and measures 21.3 cm in greatest dimension. The liver is enlarged and is heterogeneous in attenuation. There is a nodular contour of the liver also. Findings are suggesti ve of cirrhosis. Diffuse nodularity of the liver is noted. Outpatient MRI of the abdomen with contras t would be more sensitive to rule out underlying mass within the liver parenchyma if clinically indic ated. There is recanalization of the umbilical vein as well as varices scattered throughout the upper abdomen indicating portal hypertension. The gallbladder is thickened and contains calcified gallston es. Pericholecystic fluid is noted. There is diffuse thickening of the wall of the colon which is non distended. The uterus is unremarkable. The urinary bladder is unremarkable. The kidneys are unremarka ble. The adrenal glands are normal bilaterally. The visualized lung bases are clear. CONCLUSION: 1. Marked splenomegaly. 2. Enlarged diffusely nodular and heterogeneous liver suggestive of cirrhosis. Outpatient MRI of the abdomen with contrast would be more sensitive to rule out underlying mass within the liver parenchyma if clinically indicated. 3. Recanalization of the umbilical vein as well as varices scattered throughout the upper abdomen ind icating portal hypertension. 4. Thick-walled stone-containing gallbladder with minimal pericholecystic fluid. Clinical correlation is recommended to rule out cholecystitis. 5. Diffuse thickening of the wall the colon which is nondistended. Lex Aviles MD on May 09, 2017 at 23:05 Board Certified Radiologist. This report was verified electronically.
[2017-05-10] VITALS (8 sets, daily range): BP systolic 102–137; BP diastolic 58–81; PULSE 71–93; RESP 16–18; TEMP 97.4–98.6; O2SAT 96–99
[2017-05-10] MEDS: methylPREDNISolone SOD SUCC 40 MG/1 ML VIAL IV PUSH SCH ×2 (00:13→12:15)
[2017-05-10] MEDS: PENTOXIFYLLINE 400 MG CONTROLLED RELEASE TAB PO SCH ×3 (05:49→22:24)
[2017-05-10 08:06] LABS: INTERNATIONAL NORMALIZED RATIO 2.1 RATIO; PROTHROMBIN TIME - PATIENT 21.6 SEC (9.8-11.6)
[2017-05-10 08:21] LABS: ALKALINE PHOSPHATASE 97 U/L (45-117); ALT (GPT) 72 U/L (10-53); ANION GAP 7 MEQ/L (5-15); AST (GOT) 171 U/L (15-37); BLOOD UREA NITROGEN 6 MG/DL (7-18); CHLORIDE 105 MEQ/L (98-107); FERRITIN 49 NG/ML (8-252); GLOMERULAR FILTRATION RATE 109 ML/MIN (>89); MAGNESIUM 1.7 MG/DL (1.5-2.5); POTASSIUM 3.7 MEQ/L (3.5-5.1); SODIUM (NA) 137 MEQ/L (136-145); TOTAL BILIRUBIN ADULT 7.5 MG/DL (0.2-1.0); TRANSFERRIN IRON PROFILE 244 MG/DL (200-360)
[2017-05-10] MEDS: LACTULOSE SYRUP 20 GM/30 ML CUP PO SCH ×3 (09:19→18:46)
[2017-05-10] MEDS: THIAMINE HCL 100 MG TAB PO SCH (09:19)
[2017-05-10] MEDS: PROPRANOLOL HCL 10 MG TAB PO SCH ×2 (09:19→22:24)
[2017-05-10] MEDS: CALCIUM CARBONATE 500 MG CHEWABLE TAB CHEW SCH ×2 (09:20→22:24)
[2017-05-10] MEDS: FOLIC ACID 1 MG TAB PO SCH (09:20)
[2017-05-10] MEDS: SODIUM CHLORIDE 0.9% FLUSH 10 ML FLUSH IV FLUSH SCH ×2 (09:20→22:24)
[2017-05-10] MEDS: MULTIVITAMIN TAB PO SCH (09:20)
[2017-05-10] MEDS: PANTOPRAZOLE SOD 40 MG DELAYED RELEASE TAB PO SCH (09:20)
[2017-05-10] MEDS ORDERED: ERGOCALCIFEROL (VIT D2) 50,000 UNIT CAP PO ONE (09:30)
--- NOTE | 2017-05-10 11:26 | HHI.GIFU ---
Subjective Remarks Pt sitting up in bed. c/o persistent RUQ ache. Anxious, states she has no home to go to here and her van broke down and she now cannot get back to [place]. Has no insurance. (Gely Marsh) Objective Vitals I&O Vital Signs Date Time Temp Pulse Resp B/P (MAP) Pulse Ox O2 Delivery O2 Flow Rate FiO2 05/10/17 07:22 97.4 90 16 129/79 (96) 98 05/10/17 04:36 85 05/10/17 03:29 98.1 82 18 117/66 (83) 96 05/10/17 03:25 98.6 80 18 102/73 (83) 99 05/10/17 00:05 98.0 93 18 137/81 (99) 98 05/09/17 23:53 67 05/09/17 20:55 98.4 89 18 131/71 (91) 96 05/09/17 20:14 91 05/09/17 16:18 99.0 108 18 146/71 (96) 97 05/09/17 11:35 99 05/09/17 11:26 98.7 98 18 142/80 (100) 95 Laboratory Laboratory Tests Test 05/10/17 07:30 05/10/17 07:40 Prothrombin Time 21.6 Prothromb Time International Ratio 2.1 Blood Urea Nitrogen 6 Creatinine 0.63 Random Glucose 118 Total Protein 9.0 Albumin 2.4 Calcium Level 8.4 Magnesium Level 1.7 Alkaline Phosphatase 97 Aspartate Amino Transf (AST/SGOT) 171 Alanine Aminotransferase (ALT/SGPT) 72 Total Bilirubin 7.5 Sodium Level 137 Potassium Level 3.7 Chloride Level 105 Carbon Dioxide Level 25.0 Anion Gap 7 Estimat Glomerular Filtration Rate 109 Iron Level 136 Total Iron Binding Capacity 342 Percent Iron Saturation 39.8 Ferritin 49 Tumor Marker Alpha Fetoprotein 7.6 Ammonia 60 Imaging Last Impressions Abdomen/Pelvis CT 05/09/17 0000 Signed Impressions: Service Date/Time: Tuesday, May 09, 2017 19:42 - CONCLUSION: 1. Marked splenomegaly. 2. Enlarged diffusely nodular and heterogeneous liver suggestive of cirrhosis. Outpatient MRI of the abdomen with contrast would be more sensitive to rule out underlying mass within the liver parenchyma if clinically indicated. 3. Recanalization of the umbilical vein as well as varices scattered throughout the upper abdomen indicating portal hypertension. 4. Thick-walled stone-containing gallbladder with minimal pericholecystic fluid. Clinical correlation is recommended to rule out cholecystitis. 5. Diffuse thickening of the wall the colon which is nondistended. Lex Aviles MD Gall Bladder Ultrasound 05/07/17 0000 Signed Impressions: Service Date/Time: Sunday, May 07, 2017 23:10 - CONCLUSION: 1. Cholelithiasis with single echogenic gallstone with posterior shadowing. There is no evidence of biliary obstruction. 2. The liver is enlarged with findings characteristic of hepatic steatosis. Azar Rodriguez MD Physical Exam HEENT: PERRL; normocephalic; atraumatic; + jaundice. CHEST: CTA CARDIAC: RRR ABDOMEN: Soft, mildly distended, nontender; bowel sounds are present in all four quadrants. EXTREMITIES: No clubbing, cyanosis, or edema. SKIN: spider angiomas; no rash; + jaundice. 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 (Gely Marsh) Assessment and Plan Plan ASSESSMENT - RUQ pain, elevated LFTs, abd distention - hepatitis, cirrhosis. US liver shows cholelithiasis no obstruction, fatty liver could be hep c or etoh. has hx life long hep c tx naive, consistent use ETOH and denies heavy drinking, ETOH [address] showing splenomegaly, cirrhosis, varices, portal HTN, thick walled stone containing GB. AFP 7.6, rest of liver w/u pending. - elevated NH - 83 on admission, started on lactulose, A&O currently PLAN - EGD in am - obtain consent - NPO after midnight - GS consult - case mgmt consult - inderal - IV solumedrol - pentoxifylline - monitor labs - continue lactulose - await hcv genotype & quant - await liver w/u - low sodium diet - complete ETOH cessation - further recs to follow THis pt seen by myself and Dr Yoon and this note is written on his behalf (Gely Marsh) Physician Comments Seen and examined with CONTINUITY COORDINATOR, egd tomorrow . ? surgical consult for cholecystectomy if pain persists. (Roshan Yoon MD) Gely Marsh May 10, 2017 11:26 Roshan Yoon MD May 10, 2017 14:26
--- NOTE | 2017-05-10 12:56 | HHI.PR ---
Subjective Remarks Follow up on patient with hepatic encephalopathy. Patient seen and examined. Patient states she feels much better today. Reports nausea with taking the vitamin supplements earlier but otherwise denies. Denies any abdominal pain. Reports she is thinking more clearly today. Denies any auditory or visual hallucinations. Denies any fever but does report sweats overnight. States the diarrhea has improved. Denies any urinary difficulties. Denies any hematuria, hematochezia or melena. Objective Vitals Vital Signs Date Time Temp Pulse Resp B/P (MAP) Pulse Ox O2 Delivery O2 Flow Rate FiO2 05/10/17 12:09 98.3 85 16 115/62 (79) 98 05/10/17 07:22 97.4 90 16 129/79 (96) 98 05/10/17 04:36 85 05/10/17 03:29 98.1 82 18 117/66 (83) 96 05/10/17 03:25 98.6 80 18 102/73 (83) 99 05/10/17 00:05 98.0 93 18 137/81 (99) 98 05/09/17 23:53 67 05/09/17 20:55 98.4 89 18 131/71 (91) 96 05/09/17 20:14 91 05/09/17 16:18 99.0 108 18 146/71 (96) 97 Result Diagram: 05/09/17 0508 05/10/17 0730 Imaging Last Impressions Abdomen/Pelvis CT 05/09/17 0000 Signed Impressions: Service Date/Time: Tuesday, May 09, 2017 19:42 - CONCLUSION: 1. Marked splenomegaly. 2. Enlarged diffusely nodular and heterogeneous liver suggestive of cirrhosis. Outpatient MRI of the abdomen with contrast would be more sensitive to rule out underlying mass within the liver parenchyma if clinically indicated. 3. Recanalization of the umbilical vein as well as varices scattered throughout the upper abdomen indicating portal hypertension. 4. Thick-walled stone-containing gallbladder with minimal pericholecystic fluid. Clinical correlation is recommended to rule out cholecystitis. 5. Diffuse thickening of the wall the colon which is nondistended. Lex Aviles MD Gall Bladder Ultrasound 05/07/17 0000 Signed Impressions: Service Date/Time: Sunday, May 07, 2017 23:10 - CONCLUSION: 1. Cholelithiasis with single echogenic gallstone with posterior shadowing. There is no evidence of biliary obstruction. 2. The liver is enlarged with findings characteristic of hepatic steatosis. Azar Rodriguez MD Objective Remarks GENERAL: This is a well-nourished, well-developed patient, in no apparent distress. Awake and alert. Oriented. Sitting up in hospital bed. SKIN: Cool and dry. Diffuse scattered hyperpigmented papular rash on BLEs, ? Petechial rash HEAD: Atraumatic. Normocephalic. EYES: Extraocular motions intact. No scleral icterus. No injection or drainage. ENT: Nose without bleeding or purulent drainage. Airway patent. NECK: Trachea midline. CARDIOVASCULAR: Tachycardic without murmurs, gallops, or rubs. RESPIRATORY: Clear to auscultation. Breath sounds equal bilaterally. No wheezes , rales, or rhonchi. GASTROINTESTINAL: Abdomen soft, nondistended, nontender to palpation. (+)BSx4 quadrants. MUSCULOSKELETAL: Extremities without clubbing, cyanosis, or edema. No joint tenderness, effusion, or edema noted. No calf tenderness. Slightly tremulous. NEUROLOGICAL: Awake and alert. Able to move all extremities spontaneously. No focal neurologic findings appreciated. Normal speech. Medications and IVs Current Medications Medications (Trade) Dose Ordered Sig/Silvio Route Start Time Stop Time Status Last Admin (Narcan Inj) 0.4 mg UNSCH PRN IV PUSH 05/08/17 00:15 (Vitamin B1) 100 mg DAILY PO 05/08/17 09:00 05/10/17 09:19 (NS Flush) 2 ml UNSCH PRN IV FLUSH 05/08/17 00:15 (NS Flush) 2 ml BID IV FLUSH 05/08/17 09:00 05/10/17 09:20 (Folate) 1 mg DAILY PO 05/08/17 09:00 05/13/17 08:59 05/10/17 09:20 (Romazicon Inj) 0.2 mg Q1M PRN IV PUSH 05/08/17 00:15 (Ativan) 1 mg Q4H PRN PO 05/08/17 00:15 05/08/17 04:02 (Ativan Inj) 1 mg Q4H PRN IV PUSH 05/08/17 00:15 (Ativan) 2 mg Q2H PRN PO 05/08/17 00:15 (Ativan Inj) 2 mg Q2H PRN IV PUSH 05/08/17 00:15 (Ativan Inj) 2 mg Q1H PRN IV PUSH 05/08/17 00:15 (Ativan Inj) 2 mg Q15M PRN IV PUSH 05/08/17 00:15 (Theragran) 1 tab DAILY PO 05/09/17 09:00 05/10/17 09:20 (Protonix) 40 mg DAILY PO 05/09/17 09:00 05/10/17 09:20 (Motrin) 400 mg Q8H PRN PO 05/08/17 13:00 05/09/17 21:59 (Preparation H Oint) 1 applic Q6H PRN RECTAL 05/08/17 18:15 05/09/17 08:25 (Tums Chew) 500 mg Q12HR CHEW 05/09/17 09:00 05/10/17 09:20 (Lactulose Liq) 30 ml TID PO 05/09/17 13:00 05/10/17 09:19 (SoluMEDROL INJ) 40 mg Q12H IV PUSH 05/09/17 12:00 05/10/17 12:15 (TRENtal SR) 400 mg Q8HR PO 05/09/17 14:00 05/10/17 05:49 (Vitamin D3) 2,000 units DAILY PO 05/11/17 09:00 (Inderal) 10 mg Q12HR PO 05/10/17 09:00 05/10/17 09:19 A/P Assessment and Plan 32-year-old female with past medical history significant for hepatitis C and ongoing alcohol use, suspected abuse admitted with altered mental status. Hepatic encephalopathy - improved - ammonia level stable. Continue on lactulose to maintain 2-3 soft bowel movements daily. - Discussed with patient importance of complete alcohol cessation Hepatitis C, treatment hermelindo Coagulopathy Pancytopenia Hyperbilirubinemia Hx of alcohol use/suspected abuse - Ethyl alcohol level 306 at presentation - Gallbladder US showing cholelithiasis with single echogenic gallstone with posterior shadowing. There is no evidence of biliary obstruction and liver is enlarged with findings characteristic of hepatic steatosis. - CT of abdomen and pelvis revealing splenomegaly, cirrhosis, varices, portal hypertension, thick walled stone containing gallbladder. - GI following, appreciate assistance. Plan for EGD in the morning. Liver workup pending. - GS consulted per GI - Start on propanolol 10 mg twice a day - Low salt diet - Started on IV Solu-Medrol and pentoxifylline per GI - INR 2.1, no active bleeding noted. Continue to monitor. Transaminitis - Suspect multifactorial in patient with history of hepatitis C and alcohol use - LFTs trending down - continue to monitor. Repeat labs in am. Alcohol use/suspected abuse - [facility] protocol - continue on Thiamine/Folic acid/MVI daily - discussed importance of complete alcohol cessation - continue to monitor for s/sxs of withdrawal Hypocalcemia - Improved status post IV and by mouth repletion Vitamin D deficiency - Vitamin D level 15.5 - po repletion given - Follow up with PCP in 3 months to repeat level Homeless - case management consulted DVT prophylaxis - Chemoprophylaxis contraindicated - patient is ambulatory Discussed with patient, nursing staff, Ana Maria MAYORGA and Dr. Arellano Discharge Planning Pending clinical course, GI and general surgery clearance Zakiya Carvajal May 10, 2017 12:56
[2017-05-10 12:59] LABS: AUTOMATED NEUTROPHIL # 4.6 TH/MM3 (1.8-7.7); BASOPHIL % 0.1 % (0.0-2.0); HEMATOCRIT 36.8 % (35.0-46.0); LYMPH % 11.8 % (9.0-44.0); LYMPHOCYTE # 0.7 TH/MM3 (1.0-4.8); MEAN CELL VOLUME 97.2 FL (80.0-100.0); MEAN CORPUSCULAR HEMOGLOBIN 32.6 PG (27.0-34.0); MEAN CORPUSCULAR HGB CONC 33.5 % (32.0-36.0); MONO % 6.5 % (0.0-8.0); NEUT % 81.6 % (16.0-70.0); PLATELET COUNT 48 TH/MM3 (150-450); RED BLOOD COUNT 3.78 MIL/MM3 (4.00-5.30); RED CELL DISTRIBUTION WIDTH 16.2 % (11.6-17.2); WHITE BLOOD COUNT 5.6 TH/MM3 (4.0-11.0)
[2017-05-10 13:01] LABS: HEMO FLAGS AUTO DIFF
[2017-05-10 13:35] LABS: SCAN/DIFF AUTO DIFF CONFIRMED
--- NOTE | 2017-05-10 17:01 | PD.CONS ---
cc: Becky Kerr MD HPI Service General Surgery Consult Requested By Lisa MAYORGA Reason for Consult RUQ pain; cholelithiasis Primary Care Physician No Primary Care Physician History of Present Illness This is a 32-year-old female with a past medical history of known hepatitis C. The patient reports the emergency department with right upper quadrant pain. She reports that she has had right upper quadrant pain for months and has not had any medical evaluation regarding this pain. The patient reports her dietary intolerances. The patient recently moved to this area from [place]. About a week ago she noticed that her skin and eyes had a yellow to tint to them. A gallbladder ultrasound was completed which showed cholelithiasis with no evidence of biliary obstruction and liver changes are characters with hepatic steatosis. A CT abdomen and pelvis was obtained which shows a liver suggestive of cirrhosis. Her WBC has remained normal. On admission her liver enzymes were elevated including her total bilirubin which has increased to 7.5. GI has been following the patient and plans to do an endoscopy procedure tomorrow. A General Surgery consultation has been requested for evaluation of cholelithiasis. Review of Systems Constitutional: DENIES: Fatigue, Weight loss Endocrine: DENIES: Polydipsia, Polyuria, Polyphagia Eyes: DENIES: Diplopia, Photosensitivity Ears, nose, mouth, throat: DENIES: Hearing loss Respiratory: DENIES: Cough Cardiovascular: DENIES: Chest pain Gastrointestinal: COMPLAINS OF: Abdominal pain, DENIES: Nausea, Vomiting Genitourinary: DENIES: Urinary frequency Musculoskeletal: DENIES: Muscle aches Integumentary: DENIES: Pruritus Hematologic/lymphatic: DENIES: Bruising Immunologic/allergic: DENIES: Eczema Neurologic: DENIES: Headache, Localized weakness Psychiatric: DENIES: Mood changes, Depression, Hallucinations Past Family Social History Past Medical History Hepatitis C Past Surgical History None Reported Medications None Allergies: Coded Allergies: No Known Allergies (Verified , 11/09/09) Active Ordered Medications Current Medications Medications (Trade) Dose Ordered Sig/Silvio Route Start Time Stop Time Status Last Admin (Narcan Inj) 0.4 mg UNSCH PRN IV PUSH 05/08/17 00:15 (Vitamin B1) 100 mg DAILY PO 05/08/17 09:00 05/10/17 09:19 (NS Flush) 2 ml UNSCH PRN IV FLUSH 05/08/17 00:15 (NS Flush) 2 ml BID IV FLUSH 05/08/17 09:00 05/10/17 09:20 (Folate) 1 mg DAILY PO 05/08/17 09:00 05/13/17 08:59 05/10/17 09:20 (Romazicon Inj) 0.2 mg Q1M PRN IV PUSH 05/08/17 00:15 (Ativan) 1 mg Q4H PRN PO 05/08/17 00:15 05/08/17 04:02 (Ativan Inj) 1 mg Q4H PRN IV PUSH 05/08/17 00:15 (Ativan) 2 mg Q2H PRN PO 05/08/17 00:15 (Ativan Inj) 2 mg Q2H PRN IV PUSH 05/08/17 00:15 (Ativan Inj) 2 mg Q1H PRN IV PUSH 05/08/17 00:15 (Ativan Inj) 2 mg Q15M PRN IV PUSH 05/08/17 00:15 (Theragran) 1 tab DAILY PO 05/09/17 09:00 05/10/17 09:20 (Protonix) 40 mg DAILY PO 05/09/17 09:00 05/10/17 09:20 (Motrin) 400 mg Q8H PRN PO 05/08/17 13:00 05/09/17 21:59 (Preparation H Oint) 1 applic Q6H PRN RECTAL 05/08/17 18:15 05/09/17 08:25 (Tums Chew) 500 mg Q12HR CHEW 05/09/17 09:00 05/10/17 09:20 (Lactulose Liq) 30 ml TID PO 05/09/17 13:00 05/10/17 13:55 (SoluMEDROL INJ) 40 mg Q12H IV PUSH 05/09/17 12:00 05/10/17 12:15 (TRENtal SR) 400 mg Q8HR PO 05/09/17 14:00 05/10/17 13:55 (Vitamin D3) 2,000 units DAILY PO 05/11/17 09:00 (Inderal) 10 mg Q12HR PO 05/10/17 09:00 05/10/17 09:19 Family History Noncontributory Social History Denies tobacco use Positive EtOH use: 2-3 glasses of wine with dinner most nights of the week; ETOH on admission was 306 Denies illicit drug use Patient just recently moved here from [place], [place] to live with significant other. Physical Exam Vital Signs Vital Signs Date Time Temp Pulse Resp B/P (MAP) Pulse Ox O2 Delivery O2 Flow Rate FiO2 05/10/17 15:30 98.3 75 16 113/64 (80) 98 05/10/17 12:09 98.3 85 16 115/62 (79) 98 05/10/17 07:22 93 05/10/17 07:22 97.4 90 16 129/79 (96) 98 05/10/17 04:36 85 05/10/17 03:29 98.1 82 18 117/66 (83) 96 05/10/17 03:25 98.6 80 18 102/73 (83) 99 05/10/17 00:05 98.0 93 18 137/81 (99) 98 05/09/17 23:53 67 05/09/17 20:55 98.4 89 18 131/71 (91) 96 05/09/17 20:14 91 Physical Exam GENERAL: 32 year old female resting in bed in no acute distress. SKIN: Warm and dry. HEAD: Atraumatic. Normocephalic. EYES: Pupils equal and round. No scleral mildly jaundice. ENT: No nasal bleeding or discharge. Mucous membranes pink and moist. NECK: Trachea midline. CARDIOVASCULAR: Regular rate and rhythm. RESPIRATORY: No accessory muscle use. Clear to auscultation. Breath sounds equal bilaterally. GASTROINTESTINAL: Abdomen soft, non-tender, nondistended. No visible scars or hernias. MUSCULOSKELETAL: Extremities without clubbing, cyanosis, or edema. No obvious deformities. NEUROLOGICAL: Awake and alert. No obvious cranial nerve deficits. Motor grossly within normal limits. Five out of 5 muscle strength in the arms and legs. Normal speech. PSYCHIATRIC: Appropriate mood and affect; insight and judgment normal. Laboratory Laboratory Tests Test 05/10/17 07:30 05/10/17 07:40 05/10/17 12:45 Prothrombin Time 21.6 Prothromb Time International Ratio 2.1 Blood Urea Nitrogen 6 Creatinine 0.63 Random Glucose 118 Total Protein 9.0 Albumin 2.4 Calcium Level 8.4 Magnesium Level 1.7 Alkaline Phosphatase 97 Aspartate Amino Transf (AST/SGOT) 171 Alanine Aminotransferase (ALT/SGPT) 72 Total Bilirubin 7.5 Sodium Level 137 Potassium Level 3.7 Chloride Level 105 Carbon Dioxide Level 25.0 Anion Gap 7 Estimat Glomerular Filtration Rate 109 Iron Level 136 Total Iron Binding Capacity 342 Percent Iron Saturation 39.8 Ferritin 49 Tumor Marker Alpha Fetoprotein 7.6 Ammonia 60 White Blood Count 5.6 Red Blood Count 3.78 Hemoglobin 12.3 Hematocrit 36.8 Mean Corpuscular Volume 97.2 Mean Corpuscular Hemoglobin 32.6 Mean Corpuscular Hemoglobin Concent 33.5 Red Cell Distribution Width 16.2 Platelet Count 48 Mean Platelet Volume 9.0 Neutrophils (%) (Auto) 81.6 Lymphocytes (%) (Auto) 11.8 Monocytes (%) (Auto) 6.5 Eosinophils (%) (Auto) 0.0 Basophils (%) (Auto) 0.1 Neutrophils # (Auto) 4.6 Lymphocytes # (Auto) 0.7 Monocytes # (Auto) 0.4 Eosinophils # (Auto) 0.0 Basophils # (Auto) 0.0 CBC Comment AUTO DIFF Differential Comment AUTO DIFF CONFIRMED Result Diagram: 05/10/17 1245 05/10/17 0730 Imaging Last 48 hours Impressions Abdomen/Pelvis CT 05/09/17 0000 Signed Impressions: Service Date/Time: Tuesday, May 09, 2017 19:42 - CONCLUSION: 1. Marked splenomegaly. 2. Enlarged diffusely nodular and heterogeneous liver suggestive of cirrhosis. Outpatient MRI of the abdomen with contrast would be more sensitive to rule out underlying mass within the liver parenchyma if clinically indicated. 3. Recanalization of the umbilical vein as well as varices scattered throughout the upper abdomen indicating portal hypertension. 4. Thick-walled stone-containing gallbladder with minimal pericholecystic fluid. Clinical correlation is recommended to rule out cholecystitis. 5. Diffuse thickening of the wall the colon which is nondistended. Lex Aviles MD Assessment and Plan Assessment and Plan 32 year old female with RUQ pain; elevated liver enzymes -GI planning EGD tomorrow -Diet as tolerated; NPO after MN for EGD -No RUQ pain and elevated liver enzymes/INR---no surgical intervention warranted at this time -Recommend continued workup for liver -We will sign off; Please call with questions Agree with Ms Bell. No evidence of acute cholecystitis. Patient denies any RUQ pain to me. LFTS likely cirrhosis/hepatitis. May have a component of chronic cholecystitis but I would not recommend cholecystectomy due to high risk. BECKY KERR MD FACS Discussed Condition With Dr. Rama WISDOM Ms. Ely BellLeathaP May 10, 2017 17:01 Becky Kerr MD May 11, 2017 13:12
[2017-05-11] VITALS (8 sets, daily range): BP systolic 107–122; BP diastolic 55–65; PULSE 54–73; RESP 16–18; TEMP 98.1–98.2; O2SAT 94–100
[2017-05-11] MEDS: methylPREDNISolone SOD SUCC 40 MG/1 ML VIAL IV PUSH SCH ×2 (01:08→14:55)
[2017-05-11] MEDS: PENTOXIFYLLINE 400 MG CONTROLLED RELEASE TAB PO SCH ×3 (06:12→22:00)
[2017-05-11 07:10] LABS: INTERNATIONAL NORMALIZED RATIO 2.3 RATIO
[2017-05-11 07:20] LABS: ALKALINE PHOSPHATASE 77 U/L (45-117); ALT (GPT) 56 U/L (10-53); TOTAL BILIRUBIN ADULT 6.2 MG/DL (0.2-1.0)
[2017-05-11 07:31] LABS: ANION GAP 9 MEQ/L (5-15); AST (GOT) 112 U/L (15-37); BICARBONATE 22.3 MEQ/L (21.0-32.0); BLOOD UREA NITROGEN 8 MG/DL (7-18); CHLORIDE 106 MEQ/L (98-107); GLOMERULAR FILTRATION RATE 101 ML/MIN (>89); MAGNESIUM 1.9 MG/DL (1.5-2.5); POTASSIUM 3.7 MEQ/L (3.5-5.1); SODIUM (NA) 137 MEQ/L (136-145)
--- NOTE | 2017-05-11 07:50 | HHI.PR ---
Subjective Remarks Follow up on patient with hepatic encephalopathy. Patient seen and examined. Patient denies any complaints. She is requesting to be discharged. She denies any fever, chills, confusion, shakiness, N/V, chest pain or abdominal pain. Tolerating diet. Denies any active bleeding. (+)BMs. The patient was feeling well and looking forward to going home by tomorrow. She has some minimal abdominal pain. She says she has been having bowel movements regularly. She says she will need a bus pass. Objective Vitals Vital Signs Date Time Temp Pulse Resp B/P (MAP) Pulse Ox O2 Delivery O2 Flow Rate FiO2 05/11/17 07:14 98.1 60 16 113/57 (75) 95 05/11/17 03:35 98.2 54 18 107/56 (73) 97 05/11/17 00:26 98.2 66 18 108/55 (72) 94 05/10/17 20:24 98.2 71 18 115/58 (77) 96 05/10/17 15:30 98.3 75 16 113/64 (80) 98 05/10/17 12:09 98.3 85 16 115/62 (79) 98 I/O 05/10/17 05/10/17 05/10/17 05/11/17 05/11/17 05/11/17 07:00 15:00 23:00 07:00 15:00 23:00 # Voids 5 # Bowel Movements 1 Result Diagram: 05/10/17 1245 05/11/17 0625 Imaging Last Impressions Abdomen/Pelvis CT 05/09/17 0000 Signed Impressions: Service Date/Time: Tuesday, May 09, 2017 19:42 - CONCLUSION: 1. Marked splenomegaly. 2. Enlarged diffusely nodular and heterogeneous liver suggestive of cirrhosis. Outpatient MRI of the abdomen with contrast would be more sensitive to rule out underlying mass within the liver parenchyma if clinically indicated. 3. Recanalization of the umbilical vein as well as varices scattered throughout the upper abdomen indicating portal hypertension. 4. Thick-walled stone-containing gallbladder with minimal pericholecystic fluid. Clinical correlation is recommended to rule out cholecystitis. 5. Diffuse thickening of the wall the colon which is nondistended. Lex Aviles MD Gall Bladder Ultrasound 05/07/17 0000 Signed Impressions: Service Date/Time: Sunday, May 07, 2017 23:10 - CONCLUSION: 1. Cholelithiasis with single echogenic gallstone with posterior shadowing. There is no evidence of biliary obstruction. 2. The liver is enlarged with findings characteristic of hepatic steatosis. Azar Rodriguez MD Last Impressions Abdomen/Pelvis CT 05/09/17 0000 Signed Impressions: Service Date/Time: Tuesday, May 09, 2017 19:42 - CONCLUSION: 1. Marked splenomegaly. 2. Enlarged diffusely nodular and heterogeneous liver suggestive of cirrhosis. Outpatient MRI of the abdomen with contrast would be more sensitive to rule out underlying mass within the liver parenchyma if clinically indicated. 3. Recanalization of the umbilical vein as well as varices scattered throughout the upper abdomen indicating portal hypertension. 4. Thick-walled stone-containing gallbladder with minimal pericholecystic fluid. Clinical correlation is recommended to rule out cholecystitis. 5. Diffuse thickening of the wall the colon which is nondistended. Lex Aviles MD Gall Bladder Ultrasound 05/07/17 0000 Signed Impressions: Service Date/Time: Sunday, May 07, 2017 23:10 - CONCLUSION: 1. Cholelithiasis with single echogenic gallstone with posterior shadowing. There is no evidence of biliary obstruction. 2. The liver is enlarged with findings characteristic of hepatic steatosis. Azar Rodriguez MD Objective Remarks GENERAL: This is a well-nourished, well-developed patient, in no apparent distress. Awake and alert. Oriented. Sitting up in hospital bed. and cousin are present. SKIN: Warm and dry. Diffuse scattered hyperpigmented papular rash on BLEs, ? Petechial rash HEAD: Atraumatic. Normocephalic. EYES: Extraocular motions intact. No scleral icterus. No injection or drainage. ENT: Nose without bleeding or purulent drainage. Airway patent. NECK: Trachea midline. CARDIOVASCULAR: Tachycardic without murmurs, gallops, or rubs. RESPIRATORY: Clear to auscultation. Breath sounds equal bilaterally. No wheezes , rales, or rhonchi. GASTROINTESTINAL: Abdomen soft, nondistended, nontender to palpation. (+)BSx4 quadrants. MUSCULOSKELETAL: Extremities without clubbing, cyanosis, or edema. No tremors noted. NEUROLOGICAL: Awake and alert. Able to move all extremities spontaneously. No focal neurologic findings appreciated. Normal speech. Procedures EGD PROCEDURE REPORT EXAM DATE: 05/11/2017 PATIENT NAME: Heena Graves MR #: [id number] BIRTHDATE: 1985 ATTENDING: Roshan Yoon MD ORDER #: [id number] CHECKER BAKERY PRODUCTS: Zina Beach and William Hummel STATUS: inpatient INDICATIONS: The patient is a 32 yr old female here for an EGD due to history of esophageal reflux, screening for varices, and Cirrhosis PROCEDURE PERFORMED: EGD, diagnostic MEDICATIONS: None and Per Anesthesia. TOPICAL ANESTHETIC: CONSENT: The patient understands the risks and benefits of the procedure and understands that these risks include, but are not limited to: sedation, allergic reaction, infection, perforation and/or bleeding. Alternative means of evaluation and treatment include, among others: physical exam, x-rays, and/or surgical intervention. The patient elects to proceed with this endoscopic procedure. medical equipment was checked for proper function. Hand hygiene and appropriate measures for infection prevention was taken. After the risks, benefits and alternatives of the procedure were thoroughly explained, Informed consent was verified, confirmed and timeout was successfully executed by the treatment team. The patient was anesthetized with topical anesthesia and the Pentax EG-[id number] endoscope was introduced through the mouth and advanced to the second portion of the duodenum. Retroflexed views revealed no abnormalities The gastroscope was then slowly withdrawn and removed. ESOPHAGUS: There were 2 columns of small varices in the distal esophagus. The varices were not bleeding. There was evidence of prior scarring. STOMACH: There was erythematous severe gastritis in the gastric antrum. Severe portal hypertensive gastropathy was found in the gastric fundus. DUODENUM: The duodenal mucosa appeared normal in the bulb and second portion of the duodenum. ADVERSE EVENTS: There were no complications. IMPRESSIONS: 1. There was erythematous gastritis in the gastric antrum 2. Portal hypertensive gastropathy was found in the gastric fundus 3. Normal duodenal mucosa in the bulb and second portion of the duodenum 4. Retroflexed views revealed no abnormalities RECOMMENDATIONS: 1. Anti-reflux regimen 2. Continue PPI 3. AVOID ETOH. Continue INderal at 10mg 1 po bid, increase slowly as tolerated. PATIENT CONDITION: stable DISPOSITION: Inpatient REPEAT EXAM: Return 3 months EGD with sclerotherapy Medications and IVs Current Medications Medications (Trade) Dose Ordered Sig/Silvio Route Start Time Stop Time Status Last Admin (Narcan Inj) 0.4 mg UNSCH PRN IV PUSH 05/08/17 00:15 (Vitamin B1) 100 mg DAILY PO 05/08/17 09:00 05/10/17 09:19 (NS Flush) 2 ml UNSCH PRN IV FLUSH 05/08/17 00:15 (NS Flush) 2 ml BID IV FLUSH 05/08/17 09:00 05/10/17 22:24 (Folate) 1 mg DAILY PO 05/08/17 09:00 05/13/17 08:59 05/10/17 09:20 (Romazicon Inj) 0.2 mg Q1M PRN IV PUSH 05/08/17 00:15 (Ativan) 1 mg Q4H PRN PO 05/08/17 00:15 05/08/17 04:02 (Ativan Inj) 1 mg Q4H PRN IV PUSH 05/08/17 00:15 (Ativan) 2 mg Q2H PRN PO 05/08/17 00:15 (Ativan Inj) 2 mg Q2H PRN IV PUSH 05/08/17 00:15 (Ativan Inj) 2 mg Q1H PRN IV PUSH 05/08/17 00:15 (Ativan Inj) 2 mg Q15M PRN IV PUSH 05/08/17 00:15 (Theragran) 1 tab DAILY PO 05/09/17 09:00 05/10/17 09:20 (Protonix) 40 mg DAILY PO 05/09/17 09:00 05/10/17 09:20 (Motrin) 400 mg Q8H PRN PO 05/08/17 13:00 05/09/17 21:59 (Preparation H Oint) 1 applic Q6H PRN RECTAL 05/08/17 18:15 05/09/17 08:25 (Tums Chew) 500 mg Q12HR CHEW 05/09/17 09:00 05/10/17 22:24 (Lactulose Liq) 30 ml TID PO 05/09/17 13:00 05/10/17 18:46 (SoluMEDROL INJ) 40 mg Q12H IV PUSH 05/09/17 12:00 05/11/17 01:08 (TRENtal SR) 400 mg Q8HR PO 05/09/17 14:00 05/11/17 06:12 (Vitamin D3) 2,000 units DAILY PO 05/11/17 09:00 (Inderal) 10 mg Q12HR PO 05/10/17 09:00 05/10/17 22:24 A/P Assessment and Plan 32-year-old female with past medical history significant for hepatitis C and ongoing alcohol use, suspected abuse admitted with altered mental status. Hepatic encephalopathy - improved - ammonia level stable. Continue on lactulose to maintain 2-3 soft bowel movements daily. - Discussed with patient importance of complete alcohol cessation Continue with lactulose. Outpatient GI follow-up recommended. Hepatitis C, treatment hermelindo Coagulopathy Pancytopenia Hyperbilirubinemia Hx of alcohol use/suspected abuse - Ethyl alcohol level 306 at presentation - Gallbladder US showing cholelithiasis with single echogenic gallstone with posterior shadowing. There is no evidence of biliary obstruction and liver is enlarged with findings characteristic of hepatic steatosis. - CT of abdomen and pelvis revealing splenomegaly, cirrhosis, varices, portal hypertension, thick walled stone containing gallbladder. - GI following, appreciate assistance. Liver workup pending. s/p EGD showing gastritis, esophageal varices, portal hypertensive gastropathy. Recs - PPI, antireflux, NO ETOH, Inderal 10mg BID, increase as tolerated, repeat EGD with sclerotherapy in 3 months. Discussed findings and recommendations extensively with patient. - GS consulted, appreciate recommendations. No surgical intervention warranted at this time, GS signed off. - Continue on propanolol 10 mg twice a day, increase slowly as tolerated. - Low salt diet - Started on IV Solu-Medrol and pentoxifylline per GI. D/C IV steroid, po prednisone 30mg daily. - INR trending up, now 2.3, no active bleeding noted. Coumadin diet. Repeat INR in am. Follow INR. If continues to remain elevated we will discharge on a couple days of vitamin K. Continue liver regimen and outpatient GI follow-up. Transaminitis - Suspect multifactorial in patient with history of hepatitis C and alcohol use - LFTs trending down - monitor as indicated Alcohol use/suspected abuse - [facility] protocol - continue on Thiamine/Folic acid/MVI daily - discussed importance of complete alcohol cessation - continue to monitor for s/sxs of withdrawal Alcohol cessation instruction. Hypocalcemia - Improved status post IV and by mouth repletion Vitamin D deficiency - Vitamin D level 15.5 - po repletion given - Follow up with PCP in 3 months to repeat level DVT prophylaxis - Chemoprophylaxis contraindicated - patient is ambulatory Discussed with patient, nursing staff and Dr. Arellano Discharge Planning Pending stabilization of INR Attending Statement The exam, history, and the medical decision-making described in the above note were completed with the assistance of the mid-level provider. I reviewed and agree with the findings presented. I attest that I had a [id number] encounter with the patient on the same day, and personally performed and documented my assessment and findings in the medical record. Zakiya Carvajal May 11, 2017 07:50 Azar Arellano DO May 11, 2017 17:30
[2017-05-11] MEDS: CALCIUM CARBONATE 500 MG CHEWABLE TAB CHEW SCH ×2 (08:52→18:19)
[2017-05-11] MEDS: FOLIC ACID 1 MG TAB PO SCH (08:53)
[2017-05-11] MEDS: PANTOPRAZOLE SOD 40 MG DELAYED RELEASE TAB PO SCH (08:53)
[2017-05-11] MEDS: LACTULOSE SYRUP 20 GM/30 ML CUP PO SCH ×3 (08:53→18:18)
[2017-05-11] MEDS: CHOLECALCIFEROL (VIT D3) 1000 UNIT TAB PO SCH (08:53)
[2017-05-11] MEDS: SODIUM CHLORIDE 0.9% FLUSH 10 ML FLUSH IV FLUSH SCH ×2 (08:53→20:10)
[2017-05-11] MEDS: THIAMINE HCL 100 MG TAB PO SCH (08:53)
[2017-05-11] MEDS: MULTIVITAMIN TAB PO SCH (08:53)
[2017-05-11] MEDS: PROPRANOLOL HCL 10 MG TAB PO SCH ×2 (08:53→20:09)
[2017-05-11 09:22] LABS: CALCIUM-PROTEIN CORRECTED 7.8 MG/DL (8.5-10.1)
[2017-05-11] MEDS ORDERED: LIDOCAINE HCL 1% PF 5 ML SYRINGE OTHER ONE (12:00)
[2017-05-11] MEDS ORDERED: PHENYLEPH/NS 1000 MCG/10 ML SYR IV ONE (12:00)
[2017-05-11] MEDS ORDERED: PROPOFOL 200 MG/20 ML AMP IV ONE (12:00)
[2017-05-11] MEDS ORDERED: LACTATED RINGER'S 1000 ML IV PRN (12:15)
[2017-05-11] MEDS ORDERED: METOPROLOL TARTRATE 25 MG TAB PO PRN (12:15)
[2017-05-11] MEDS ORDERED: SODIUM CHLORID 0.9% 500 ML IV PRN (12:15)
[2017-05-11] MEDS ORDERED: INSULIN HUMAN REGULAR 1,000 UNITS/10 ML VIAL SQ PRN (12:15)
[2017-05-11] MEDS ORDERED: POVIDONE IODINE 5% (ANTISEPSIS KIT) 4 APPLICATIONS EACH NARE PRN (12:15)
[2017-05-11] MEDS ORDERED: CHLORHEXIDINE GLUCONATE 2 % 1 PACK (2 CLOTHS) TOPICAL PRN (12:15)
--- NOTE | 2017-05-11 12:31 | GIPROC ---
[facility] [address] [facility], [address] EGD PROCEDURE REPORT EXAM DATE: 05/11/2017 PATIENT NAME: Heena Graves MR #: [id number] BIRTHDATE: 1985 ATTENDING: Roshan Yoon MD ORDER #: [id number] TRADING MANAGER: Zina Beach and William Hummel STATUS: inpatient INDICATIONS: The patient is a 32 yr old female here for an EGD due to history of esophageal reflux, screening for varices, and Cirrhosis PROCEDURE PERFORMED: EGD, diagnostic MEDICATIONS: None and Per Anesthesia. TOPICAL ANESTHETIC: CONSENT: The patient understands the risks and benefits of the procedure and understands that these risks include, but are not limited to: sedation, allergic reaction, infection, perforation and/or bleeding. Alternative means of evaluation and treatment include, among others: physical exam, x-rays, and/or surgical intervention. The patient elects to proceed with this endoscopic procedure. medical equipment was checked for proper function. Hand hygiene and appropriate measures for infection prevention was taken. After the risks, benefits and alternatives of the procedure were thoroughly explained, Informed consent was verified, confirmed and timeout was successfully executed by the treatment team. The patient was anesthetized with topical anesthesia and the Pentax EG-[id number] endoscope was introduced through the mouth and advanced to the second portion of the duodenum. Retroflexed views revealed no abnormalities The gastroscope was then slowly withdrawn and removed. ESOPHAGUS: There were 2 columns of small varices in the distal esophagus. The varices were not bleeding. There was evidence of prior scarring. STOMACH: There was erythematous severe gastritis in the gastric antrum. Severe portal hypertensive gastropathy was found in the gastric fundus. DUODENUM: The duodenal mucosa appeared normal in the bulb and second portion of the duodenum. ADVERSE EVENTS: There were no complications. IMPRESSIONS: 1. There was erythematous gastritis in the gastric antrum 2. Portal hypertensive gastropathy was found in the gastric fundus 3. Normal duodenal mucosa in the bulb and second portion of the duodenum 4. Retroflexed views revealed no abnormalities RECOMMENDATIONS: 1. Anti-reflux regimen 2. Continue PPI 3. AVOID ETOH. Continue INderal at 10mg 1 po bid, increase slowly as tolerated. PATIENT CONDITION: stable DISPOSITION: Inpatient REPEAT EXAM: Return 3 months EGD with sclerotherapy Roshan Yoon MD eSigned: Roshan Yoon MD 05/11/2017 12:31 PM cc: PATIENT NAME: Heena Graves MR#: [id number]
[2017-05-12 04:56] VITALS: BP 98/56; PULSE 63; RESP 17; TEMP 98.2; O2SAT 94
[2017-05-12] MEDS: PENTOXIFYLLINE 400 MG CONTROLLED RELEASE TAB PO SCH (06:00)
[2017-05-12 06:39] LABS: INTERNATIONAL NORMALIZED RATIO 2.3 RATIO
[2017-05-12 08:17] VITALS: BP 97/54; PULSE 70; RESP 20; TEMP 97.9; O2SAT 97
[2017-05-12] MEDS: LACTULOSE SYRUP 20 GM/30 ML CUP PO SCH (08:40)
[2017-05-12] MEDS: PANTOPRAZOLE SOD 40 MG DELAYED RELEASE TAB PO SCH (08:40)
[2017-05-12] MEDS: THIAMINE HCL 100 MG TAB PO SCH (08:40)
[2017-05-12] MEDS: MULTIVITAMIN TAB PO SCH (08:40)
[2017-05-12] MEDS: PROPRANOLOL HCL 10 MG TAB PO SCH (08:41)
[2017-05-12] MEDS: CHOLECALCIFEROL (VIT D3) 1000 UNIT TAB PO SCH (08:41)
[2017-05-12] MEDS: FOLIC ACID 1 MG TAB PO SCH (08:41)
[2017-05-12] MEDS: CALCIUM CARBONATE 500 MG CHEWABLE TAB CHEW SCH (08:41)
[2017-05-12] MEDS: SODIUM CHLORIDE 0.9% FLUSH 10 ML FLUSH IV FLUSH SCH (08:46)
[2017-05-12] MEDS ORDERED: IBUPROFEN 800 MG TAB PO ONE (09:00)
[2017-05-12] MEDS ORDERED: predniSONE 20 MG TAB PO SCH (09:00)
[2017-05-12] MEDS ORDERED: HYDROCORTISONE/PRAMOXINE RECTAL FOAM 10 GM CAN RECTAL ONE (09:15)
[2017-05-12] MEDS: PETROLEUM/SHARK LIVER OIL/PHENYLEPHRINE 60 GM TUBE RECTAL PRN (09:19)
--- NOTE | 2017-05-12 10:36 | HHI.GIFU ---
Subjective Remarks Pt sitting up in bed. Tolerating diet. Tells me she still has RUQ discomfort. Verbalized understanding for need for GI f/u. (Gely Marsh) Objective Vitals I&O Vital Signs Date Time Temp Pulse Resp B/P (MAP) Pulse Ox O2 Delivery O2 Flow Rate FiO2 05/12/17 08:17 97.9 70 20 97/54 (68) 97 05/12/17 04:56 98.2 63 17 98/56 (70) 94 05/11/17 23:25 98.2 72 17 122/60 (80) 97 05/11/17 20:46 98.2 59 18 115/58 (77) 94 05/11/17 16:00 98.1 73 18 114/55 (74) 99 05/11/17 12:40 98.4 67 20 110/58 (75) 98 05/11/17 11:10 98.1 62 16 114/65 (81) 100 I/O 05/11/17 05/11/17 05/11/17 05/12/17 05/12/17 05/12/17 07:00 15:00 23:00 07:00 15:00 23:00 Intake Total 100 ml Balance 100 ml Other 100 ml Laboratory Laboratory Tests Test 05/12/17 05:10 Prothrombin Time 23.0 Prothromb Time International Ratio 2.3 Physical Exam HEENT: PERRL; normocephalic; atraumatic; + jaundice. CHEST: CTA CARDIAC: RRR ABDOMEN: Soft, mildly distended, nontender; bowel sounds are present in all four quadrants. EXTREMITIES: No clubbing, cyanosis, or edema. SKIN: spider angiomas; no rash; + jaundice. CERTIFIED PHYSICAL THERAPIST ASSISTANT: No focal deficits; alert and oriented times three. (Gely Marsh) Assessment and Plan Plan ASSESSMENT - RUQ pain, elevated LFTs, abd distention - hepatitis, cirrhosis. US liver shows cholelithiasis no obstruction, fatty liver could be hep c or etoh. has hx life long hep c tx naive, consistent use ETOH and denies heavy drinking, ETOH [address] showing splenomegaly, cirrhosis, varices, portal HTN, thick walled stone containing GB. liver w/u unremarkable thus far, AMA pending s/p EGD found erythematous gastritis, portal HTN gastropathy. still with some RUQ discomfort although per GS note she denied this to them. no surgical intervention at this time, high risk d/t INR - coagulopathy - INR 2.3 seems stable. per primary vitamin K rich diet - elevated NH - 83 on admission, started on lactulose, A&O. PLAN - EGD 3 months with sclerotherapy - inderal 10mg BID, increase slowly - PO prednisone 30mg when d/c, then taper 5d on 20mg, 5d on 10mg - continue pentoxifylline - monitor labs - continue lactulose - await hcv genotype & quant - await AMA - low sodium diet - complete ETOH cessation - stressed importance of follow up with GI 1 week - ok to d/c from GI standpoint - d/w primary THis pt seen by myself and Dr Davidson and this note is written on his behalf (Gely Marsh) Plan Patient was seen and examined, agree with above-noted implant, patient was advised to avoid alcohol completely and continue the steroid taper for possible alcohol hepatitis, she needs to follow up with gastroenterology in her home town in a week for repeating liver function test and further management she understands that patient being discharged today (Peter Davidson MD) Gely Marsh May 12, 2017 10:36 Peter Davidson MD May 12, 2017 13:53
[2017-05-12] MEDS ORDERED: PHYTONADIONE 5 MG TAB PO ONE (10:45)
--- NOTE | 2017-05-12 10:49 | HHI.DCPOC ---
Discharge Care Plan Diagnosis: (1) Liver cirrhosis (2) Hepatic encephalopathy (3) Alcohol intoxication (4) Coagulopathy (5) Gastritis (6) Hyperbilirubinemia (7) Thrombocytopenia (8) Hyperammonemia (9) Calcium deficiency (10) Vitamin D deficiency (11) Transaminitis (12) Esophageal varices in cirrhosis (13) Portal hypertensive gastropathy Goals to Promote Your Health * To prevent worsening of your condition and complications * To maintain your health at the optimal level Directions to Meet Your Goals Please stop drinking all alcohol Recommend avoidance of all non steroidal anti-inflammatories. Recommend follow-up with child abuse worker as well as primary care physician as outpatient. Gastroenterology has recommended repeat EGD with sclerotherapy in 3 months. Take your medications as prescribed Follow your dietary instruction Follow activity as directed Keep your appointments as scheduled Take your immunizations and boosters as scheduled If your symptoms worsen call your PCP, if no PCP go to Urgent Care Center or Emergency Room Smoking is Dangerous to Your Health. Avoid second hand smoke Call the 24-hour hour crisis hotline for domestic abuse at Zakiya Carvajal May 12, 2017 10:49 Azar Arellano DO May 12, 2017 16:03
--- NOTE | 2017-05-12 11:19 | HHI.DS ---
Discharge Summary Admission Date May 07, 2017 at 23:52 Discharge Date: May 12, 2017 Admitting Diagnosis hepatic encephalopathy, transaminitis, hyperbilirubinemia, alcohol ABUSE (1) Hepatic encephalopathy ICD Code: K72.90 - Hepatic failure, unspecified without coma Status: Acute (2) Alcohol intoxication ICD Code: F10.929 - Alcohol use, unspecified with intoxication, unspecified Status: Acute (3) Liver cirrhosis ICD Code: K74.60 - Unspecified cirrhosis of liver (4) Thrombocytopenia ICD Code: D69.6 - Thrombocytopenia, unspecified (5) Esophageal varices in cirrhosis ICD Code: K74.60 - Unspecified cirrhosis of liver; I85.10 - Secondary esophageal varices without bleeding (6) Portal hypertensive gastropathy ICD Code: K31.89 - Other diseases of stomach and duodenum (7) Coagulopathy ICD Code: D68.9 - Coagulation defect, unspecified (8) Gastritis ICD Code: K29.70 - Gastritis, unspecified, without bleeding (9) Hyperbilirubinemia ICD Code: E80.6 - Other disorders of bilirubin metabolism Status: Acute (10) Hyperammonemia ICD Code: E72.20 - Disorder of urea cycle metabolism, unspecified (11) Calcium deficiency ICD Code: E58 - Dietary calcium deficiency (12) Vitamin D deficiency ICD Code: E55.9 - Vitamin D deficiency, unspecified (13) Transaminitis ICD Code: R74.0 - Nonspecific elevation of levels of transaminase and lactic acid dehydrogenase [LDH] Status: Acute (14) Hepatitis C ICD Code: B19.20 - Unspecified viral hepatitis C without hepatic coma Procedures EGD PROCEDURE REPORT EXAM DATE: 05/11/2017 PATIENT NAME: Heena Graves MR #: [id number] BIRTHDATE: 1985 ATTENDING: Roshan Yoon MD ORDER #: [id number] ART DEPARTMENT HEAD: Zina Beach and William Hmumel STATUS: inpatient INDICATIONS: The patient is a 32 yr old female here for an EGD due to history of esophageal reflux, screening for varices, and Cirrhosis PROCEDURE PERFORMED: EGD, diagnostic MEDICATIONS: None and Per Anesthesia. TOPICAL ANESTHETIC: CONSENT: The patient understands the risks and benefits of the procedure and understands that these risks include, but are not limited to: sedation, allergic reaction, infection, perforation and/or bleeding. Alternative means of evaluation and treatment include, among others: physical exam, x-rays, and/or surgical intervention. The patient elects to proceed with this endoscopic procedure. medical equipment was checked for proper function. Hand hygiene and appropriate measures for infection prevention was taken. After the risks, benefits and alternatives of the procedure were thoroughly explained, Informed consent was verified, confirmed and timeout was successfully executed by the treatment team. The patient was anesthetized with topical anesthesia and the Waneloax [id number] endoscope was introduced through the mouth and advanced to the second portion of the duodenum. Retroflexed views revealed no abnormalities The gastroscope was then slowly withdrawn and removed. ESOPHAGUS: There were 2 columns of small varices in the distal esophagus. The varices were not bleeding. There was evidence of prior scarring. STOMACH: There was erythematous severe gastritis in the gastric antrum. Severe portal hypertensive gastropathy was found in the gastric fundus. DUODENUM: The duodenal mucosa appeared normal in the bulb and second portion of the duodenum. ADVERSE EVENTS: There were no complications. IMPRESSIONS: 1. There was erythematous gastritis in the gastric antrum 2. Portal hypertensive gastropathy was found in the gastric fundus 3. Normal duodenal mucosa in the bulb and second portion of the duodenum 4. Retroflexed views revealed no abnormalities RECOMMENDATIONS: 1. Anti-reflux regimen 2. Continue PPI 3. AVOID ETOH. Continue INderal at 10mg 1 po bid, increase slowly as tolerated. PATIENT CONDITION: stable DISPOSITION: Inpatient REPEAT EXAM: Return 3 months EGD with sclerotherapy Brief History - From Admission hx from patient, ER communication and review of med records no fever no [place] no vomtiing was told liver flare up about 1 week ago has been drowsy has hepatitis c wont wake up for my interview - but mostly sleepy has not made bowel movement is confused on my arrival, took long time to wake up and was not answering questions Wide awake for my interview answered all questions appropriately has not taken lactulose yet CBC/BMP: 05/10/17 1245 05/11/17 0625 Significant Findings Laboratory Tests Test 05/10/17 07:30 05/10/17 07:40 05/10/17 12:45 05/11/17 06:25 Prothrombin Time 21.6 SEC (9.8-11.6) Blood Urea Nitrogen 6 MG/DL (7-18) Random Glucose 118 MG/DL (74-106) 119 MG/DL (74-106) Total Protein 9.0 GM/DL (6.4-8.2) Albumin 2.4 GM/DL (3.4-5.0) 2.1 GM/DL (3.4-5.0) Calcium Level 8.4 MG/DL (8.5-10.1) 8.3 MG/DL (8.5-10.1) Aspartate Amino Transf (AST/SGOT) 171 U/L (15-37) 112 U/L (15-37) Alanine Aminotransferase (ALT/SGPT) 72 U/L (10-53) 56 U/L (10-53) Total Bilirubin 7.5 MG/DL (0.2-1.0) 6.2 MG/DL (0.2-1.0) Ammonia 60 MCMOL/L (11-32) Red Blood Count 3.78 MIL/MM3 (4.00-5.30) Platelet Count 48 TH/MM3 (150-450) Neutrophils (%) (Auto) 81.6 % (16.0-70.0) Lymphocytes # (Auto) 0.7 TH/MM3 (1.0-4.8) Protein Corrected Calcium 7.8 MG/DL (8.5-10.1) Test 05/11/17 06:35 05/12/17 05:10 Prothrombin Time 23.0 SEC (9.8-11.6) 23.0 SEC (9.8-11.6) Ammonia 71 MCMOL/L (11-32) Imaging Last Impressions Abdomen/Pelvis CT 05/09/17 0000 Signed Impressions: Service Date/Time: Tuesday, May 09, 2017 19:42 - CONCLUSION: 1. Marked splenomegaly. 2. Enlarged diffusely nodular and heterogeneous liver suggestive of cirrhosis. Outpatient MRI of the abdomen with contrast would be more sensitive to rule out underlying mass within the liver parenchyma if clinically indicated. 3. Recanalization of the umbilical vein as well as varices scattered throughout the upper abdomen indicating portal hypertension. 4. Thick-walled stone-containing gallbladder with minimal pericholecystic fluid. Clinical correlation is recommended to rule out cholecystitis. 5. Diffuse thickening of the wall the colon which is nondistended. Lex Aviles MD Gall Bladder Ultrasound 05/07/17 0000 Signed Impressions: Service Date/Time: Sunday, May 07, 2017 23:10 - CONCLUSION: 1. Cholelithiasis with single echogenic gallstone with posterior shadowing. There is no evidence of biliary obstruction. 2. The liver is enlarged with findings characteristic of hepatic steatosis. Azar Rodriguez MD PE at Discharge GENERAL: This is a well-nourished, well-developed patient, in no apparent distress. Awake and alert. Oriented. Sitting up in hospital bed. and cousin are present. SKIN: Warm and dry. Diffuse scattered hyperpigmented papular rash on BLEs, ? Petechial rash HEAD: Atraumatic. Normocephalic. EYES: Extraocular motions intact. No scleral icterus. No injection or drainage. ENT: Nose without bleeding or purulent drainage. Airway patent. NECK: Trachea midline. CARDIOVASCULAR: Tachycardic without murmurs, gallops, or rubs. RESPIRATORY: Clear to auscultation. Breath sounds equal bilaterally. No wheezes , rales, or rhonchi. GASTROINTESTINAL: Abdomen soft, nondistended, nontender to palpation. (+)BSx4 quadrants. MUSCULOSKELETAL: Extremities without clubbing, cyanosis, or edema. No tremors noted. NEUROLOGICAL: Awake and alert. Able to move all extremities spontaneously. No focal neurologic findings appreciated. Normal speech. Pt update on day of discharge Follow up on patient with liver cirrhosis, hepatic encephalopathy. Patient seen and examined. Patient complaining of rectal irritation/soreness from frequent bowel movements/diarrhea. Reports persistent but much improved RUQ pain. She is requesting to be discharged. She reports feeling much better today. She denies any confusion, drowsiness, fatigue, N/V, fever or chills. She denies any dark/bloody/tarry stools. Denies any active bleeding. She is tolerating diet without any difficulties. Hospital Course Patient with past medical history of hepatitis C, treatment hermelindo admitted with transaminitis, coagulopathy with INR 1.8, thrombocytopenia and hepatic encephalopathy secondary to acute alcohol intoxication with ethyl alcohol level of 306 and ammonia level of 83. Gallbladder US revealed cholelithiasis with single echogenic gallstone with posterior shadowing. There is no evidence of biliary obstruction and liver is enlarged with findings characteristic of hepatic steatosis. Patient was started on lactulose 30 mL 4 times a day. CIWA protocol initiated and patient started on MVI/thiamine/folic acid daily. She was given oral vitamin K for elevated INR. Her ammonia level improved, sensorium cleared and she returned to baseline. She was found to be hypocalcemic and vitamin D deficient, both were treated with repletion. Her LFTs improved. She was advised repeatedly on the importance of complete alcohol cessation She complained of RUQ pain. CT abd/pelvis splenomegaly, cirrhosis, varices, portal HTN, thick walled stone containing GB. Patient was seen in consultation by GI and underwent EGD showing gastritis and portal hypertensive gastropathy. She was treated with PPI, Inderal, IV Solumedrol and pentoxifylline. HCV genotype and quant was ordered and pending at time of her discharge. She was placed on a low sodium diet. She was evaluated by GS who did not recommend cholecystectomy due to high risk. Her INR trended up to 2.3 and stabilized. She had no evidence of active bleeding. Her platelet count remained low but improved. She was advised on avoidance of NSAIDS, antireflux measures and complete cessation of all alcohol. She was advised on her increased risk of bleeding. She was instructed on the importance of close follow up with both PCP and GI. She was advised GI recommended repeat EGD with sclerotherapy in 3 months. The patient was feeling well on the day of discharge. She said that she had some rectal pain and was willing to try the new medication to help improve that. She'll continue with lactulose, prednisone and pentoxifylline. She will follow up with GI as an outpatient. Pt Condition on Discharge: Stable Discharge Disposition: Discharge Home Discharge Time: > 30 minutes Discharge Instructions DIET: Follow Instructions for: Low Sodium Diet Activities you can perform: Regular-No Restrictions Follow up Referrals: Gastroenterology - 1 Week with Roshan Yoon MD PCP Follow-up - 1 Week with Emily Collazo New Medications: Phytonadione (Vit K1) (Phytonadione) 100 % Liquid 5 MG PO DAILY for Vitamin K deficiency for 2 Days, #10 MG Cholecalciferol (Gnp Vitamin D3 Extra Stre) 1,000 Unit Tab 2000 UNITS PO DAILY for Nutritional Supplement for 30 Days, TAB Folic Acid (Folic Acid) 1 Mg Tablet 1 MG PO DAILY for Nutritional Supplement for 30 Days, #30 TAB Multivitamin with Folic Acid (Thera Tablet) 400 Mcg Tablet 1 TAB PO DAILY for Nutritional Supplement for 30 Days, #30 TAB Pantoprazole (Pantoprazole) 40 Mg Tab 40 MG PO DAILY for GASTRITIS for 30 Days, #30 TAB Pentoxifylline ER (Pentoxifylline ER) 400 Mg Tab 400 MG PO Q8HR for LIVER DISEASE for 30 Days, TAB Prednisone (Prednisone) 20 Mg Tab 20 MG PO DAILY for LIVER DISEASE for 10 Days, #10 TAB Take 20mg x 5 days, then take 10mg x 5 days, then discontinue. Propranolol (Propranolol) 10 Mg Tab 5 MG PO Q12HR for PORTAL HYPERTENSION, #60 TAB Thiamine HCl (Gnp Vitamin B-1) 100 Mg Tab 100 MG PO DAILY for Nutritional Supplement for 30 Days, #30 TAB [Calcium Carbonate Chew] () 500 MG CHEW 500 MG CHEW BID for HYPOCALCEMIA for 10 Days [Lactulose Liq] () 30 ML SYRP 30 ML PO TID for LIVER DISEASE/HYPERAMMONEMIA, #1 BOTTLE Additional Information The exam, history, and the medical decision-making described in the above note were completed with the assistance of the mid-level provider. I reviewed and agree with the findings presented. I attest that I had a [id number] encounter with the patient on the same day, and personally performed and documented my assessment and findings in the medical record. Zakiya Carvajal May 12, 2017 11:19 Azar Arellano DO May 12, 2017 16:06
[2017-05-12] MEDS ORDERED: PANT40TA3 PO (11:27)
[2017-05-12] MEDS ORDERED: PRED20 PO (11:27)
[2017-05-12] MEDS ORDERED: Calcium Carbonate Chew CHEW (11:27)
[2017-05-12] MEDS ORDERED: THIA100 PO (11:27)
[2017-05-12] MEDS ORDERED: CHOL1000 PO (11:27)
[2017-05-12] MEDS ORDERED: THERTAB15 PO (11:27)
[2017-05-12] MEDS ORDERED: Lactulose Liq PO (11:27)
[2017-05-12] MEDS ORDERED: PROP10TA6 PO (11:27)
[2017-05-12] MEDS ORDERED: PENT400T PO (11:27)
[2017-05-12] MEDS ORDERED: FOLI1TAB6 PO (11:27)
[2017-05-12] MEDS ORDERED: PHYTONADIONE 5 MG/SWFI 5 ML ORAL SYR PO ONE (11:30)
[2017-05-12] MEDS ORDERED: [UNRECOGNIZED DRUG - CODE] PO (11:30)
[2017-05-12 19:53] LABS: HEPATITIS C RNA GENOTYPE 1a (NOT DETECTD)
[2017-05-12 23:53] LABS: HCV RNA PCR IU/ML 36000 IU/mL (0-14); HCV RNA PCR LOGIU/ML 4.56 (0-1.18)
[2017-05-13 07:51] LABS: MITOCHONDRIAL ABS LESS THAN 20.0 U (<=20.0)
== END 2017-05-12 11:32 | disposition home or self-care (01) ==
LOC: NEPE 21:52 → NEDA 23:52 → NEPFCDU 05-08 01:33
PROVIDERS: ADMIT Hospitalist; ATTEND Hospitalist
DX: K72.90 Hepatic failure, unspecified without coma (principal); B19.20 Unspecified viral hepatitis C without hepatic coma; K80.20 Calculus of gallbladder without cholecystitis without obstruction; K76.6 Portal hypertension; F10.129 Alcohol abuse with intoxication, unspecified; R16.1 Splenomegaly, not elsewhere classified; R74.0 Nonspecific elevation of levels of transaminase and lactic acid dehydrogenase [LDH]; K31.89 Other diseases of stomach and duodenum; K29.70 Gastritis, unspecified, without bleeding; E80.6 Other disorders of bilirubin metabolism; E58 Dietary calcium deficiency; E72.20 Disorder of urea cycle metabolism, unspecified; E55.9 Vitamin D deficiency, unspecified; K62.89 Other specified diseases of anus and rectum; E83.51 Hypocalcemia; R60.0 Localized edema; D68.9 Coagulation defect, unspecified; K74.60 Unspecified cirrhosis of liver; F41.9 Anxiety disorder, unspecified; F32.9 Major depressive disorder, single episode, unspecified; Y90.8 Blood alcohol level of 240 mg/100 ml or more
CPT/HCPCS: 74177; 76705; 80053; 80307; 81001; 82103; 82105; 82140; 82150; 82248; 82306; 82390; 82728; 83520; 83540; 83550; 83690; 83735; 84100; 84155; 84443; 84702; 84703; 85025; 85610; 85730; 86038; 86255; 87522; 87902; 96361; 96365; 96375; 96376; 99285; G0378; J0610; J2370; J2920; J7030; J7512; Q9963; Q9967